=== PATIENT | female | born 1970 | race African-American/Black ===

== ENCOUNTER 2016-05-27 11:14 | Emergency (ER) | payer MEDICARE, MEDICAID ==
[~2016-05-27] VITALS: Ht 144.8 cm; Wt 60.0 kg
[~2016-05-27 11:14] MED LIST: ASPI81TA2 PO; BUSP5TAB PO; DENO60P SQ; EMTR1TAB2 PO; ERGO1CAP10 PO; HUMALOG SQ; HYDR-3133 PO; LEVEMIR SQ; METR-1 PO; NEPHTAB3 PO; OLAN5TAB PO; PHOS667C5 PO; PLAV75TA29 PO; ROSU1TAB4 PO; THERTAB53 PO; TIOT1AER INH
[2016-05-27 11:16] VITALS: BP 149/68; PULSE 117; RESP 18; TEMP 98.2; O2SAT 95
[2016-05-27 12:33] VITALS: BP 143/71; PULSE 111; RESP 18; O2SAT 100
[2016-05-27] MEDS ORDERED: VANC250C2 PO (12:33)
[2016-05-27] MEDS ORDERED: ULTR50TA5 PO (13:39)
[2016-05-27] MEDS ORDERED: AMOX500T PO (13:39)
--- NOTE | 2016-05-27 13:39 | PD ---
HPI Chief Complaint: Nosebleed Time Seen by Provider: 12:11 Travel History International Travel<30 days: No Contact w/Intl Traveler<30days: No Traveled to known affect area: No History of Present Illness HPI 46 years old female complains of nosebleed. Patient states that the nosebleed started last night. Patient has history of CAD status post stents placement on May 16, 2015. Patient is on Plavix since then. Patient denies any recent injury. Patient states that she slow bleeding from the left-sided nose since last night. Patient denies any headache. Patient denies any facial pain. Patient denies any chest pain or shortness of breath. Patient denies any dizziness. PFSH Past Medical History Hx Anticoagulant Therapy: Yes Arthritis: No Asthma: No Autoimmune Disease: Yes Blood Disorders: Yes (HIV) Anxiety: No Depression: No Heart Rhythm Problems: No Cancer: No Cardiac Catheterization: Yes Cardiovascular Problems: Yes High Cholesterol: Yes Chemotherapy: No Chest Pain: No Congestive Heart Failure: Yes COPD: Yes Cerebrovascular Accident: Yes Coronary Artery Disease: Yes Diabetes: Yes Patient Takes Glucophage: No Dialysis: Yes (M W F) Diminished Hearing: No Endocrine: Yes GERD: No Genitourinary: Yes (ESRD) Headaches: Yes Hiatal Hernia: No Hypertension: Yes Immune Disorder: Yes (HIV ) Implanted Vascular Access Dvce: Yes Kidney Stones: No Medical other: Yes Musculoskeletal: Yes (OSTEOPOROSIS) Neurologic: Yes Psychiatric: No Reproductive: No Respiratory: Yes (copd) Immunizations Current: Yes Radiation Therapy: No Renal Failure: Yes Seizures: No Sickle Cell Disease: No Sleep Apnea: No Thyroid Disease: No Ulcer: No Influenza Vaccination: Yes ?: Not Menopausal: Yes : 0 Para: 0 Miscarriage: 0 : 0 Tubal Ligation: Yes Past Surgical History Abdominal Surgery: No AICD: No Arteriovenous Shunt: Yes Body Medical Devices: L AV FISTULA Cardiac Surgery: Yes Coronary Stent: Yes (5 stents) Ear Surgery: No Endocrine Surgery: No Eye Surgery: No Genitourinary Surgery: No Gynecologic Surgery: No Insulin Pump: No Joint Replacement: No Oral Surgery: No Pacemaker: No Thoracic Surgery: No Other Surgery: Yes (AV FISTULA L ARM) Social History Alcohol Use: No Tobacco Use: No Substance Use: No Allergies-Medications (Allergen,Severity, Reaction): Coded Allergies: Codeine (Verified Allergy, Severe, Rash, 05/27/16) *MDRO Multi-Drug Resistant Organism (Verified Adverse Reaction, Unknown, ) 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 - 11/27/15 Reported Meds & Prescriptions Reported Meds & Active Scripts Active Ultram (Tramadol HCl) 50 Mg Tab 50 Mg PO Q6H PRN Amoxicillin 500 Mg Tab 500 Mg PO TID Reported Vancomycin (Vancomycin HCl) 250 Mg Cap 250 Mg PO QID Vitamin D (Ergocalciferol) 50,000 Unit Cap 50,000 Units PO MONTHLY Thera-Tabs (Multiple Vitamin) 1 Tab Tab 1 Tab PO DAILY Stiolto Respimat Inh (Tiotropium-Olodaterol Inh) 2.5-2.5 Mcg/Act Aero 2 Puff INH DAILY Rosuvastatin (Rosuvastatin Calcium) 5 Mg Tab 5 Mg PO MOWEFR Take 1 tablet (5mg) at bedtime on Thursday, Thursday and Thursday Prolia Inj (Denosumab) 60 Mg/Ml Inj 60 Mg SQ Q180D Olanzapine 5 Mg Tab 5 Mg PO HS Odefsey (Gihjavuelozci-Gkaxltwnkjv-Djqbnhmfe Alafenam) 200-200-25 Mg Tab 1 Tab PO DAILY Nephro-Juan Antonio (B-Complex W/ C & Folic Acid) 1 Tab 1 Tab PO DAILY Levemir Inj (Insulin Detemir) 1,000 unit/ 10 ML Vial 18 Units SQ HS Do not mix with any other Insulin. Hydroxyzine HCl 25 Mg Tab 25 Mg PO HS Humalog Inj (Insulin Human Lispro) 1,000 Unit/10 Ml Vial SQ ACHS PER SLIDING SCALE Plavix (Clopidogrel Bisulfate) 75 Mg Tab 75 Mg PO DAILY Phoslo (Calcium Acetate (Phosphate Binder)) 667 Mg Cap 1,334 Mg PO TID Take with meals Buspirone (Buspirone HCl) 5 Mg Tab 5 Mg PO BID Aspirin EC Low Dose (Aspirin) 81 Mg Tabec 81 Mg PO MOWEFR Take 1 tablet(81mg) at bedtime on Thursday,Thursday and Thursday Review of Systems General / Constitutional: No: Fever Eyes: No: Visual changes HENT: Positive: Nosebleed, No: Headaches Cardiovascular: No: Chest Pain or Discomfort Respiratory: No: Shortness of Breath Gastrointestinal: No: Abdominal Pain Genitourinary: No: Dysuria Musculoskeletal: No: Pain Skin: No Rash Neurologic: No: Weakness Psychiatric: No: Depression Endocrine: No: Polydipsia Hematologic/Lymphatic: No: Easy Bruising Physical Exam Narrative GENERAL: Well-nourished, well-developed patient. SKIN: Warm and dry. HEAD: Normocephalic. EYES: No scleral icterus. No injection or drainage. Patient has mild bleeding from the left-sided nose. NECK: Supple, trachea midline. No JVD or lymphadenopathy. CARDIOVASCULAR: Regular rate and rhythm without murmurs, gallops, or rubs. RESPIRATORY: Breath sounds equal bilaterally. No accessory muscle use. GASTROINTESTINAL: Abdomen soft, non-tender, nondistended. MUSCULOSKELETAL: No cyanosis, or edema. BACK: Nontender without obvious deformity. No CVA tenderness. Neurologic exam normal. Data Data Last Documented VS Vital Signs Date Time Temp Pulse Resp B/P Pulse Ox O2 Delivery O2 Flow Rate FiO2 05/27/16 13:42 112 16 134/74 96 Room Air 05/27/16 11:16 98.2 Orders MDM Medical Decision Making Medical Screen Exam Complete: Yes Emergency Medical Condition: Yes Differential Diagnosis Epistaxis Narrative Course 46 years old female with epistaxis. Patient is on Plavix. I spoke with Dr. Stahl, who is covering for Dr. Sow. Advised to hold off Plavix for next 4 days. Procedures Procedure Narrative Rhino Rocket inserted left side of the nose. Bleeding stopped completely. Diagnosis Primary Impression: Epistaxis Patient Instructions: General Instructions Additional Instructions: Follow-up with personal physician or ENT for packing removal in 3 days. Take medications as directed. Return if persistent bleeding. No Plavix for 4 days. Med/Other Pt SpecificInfo: Prescription(s) given Scripts Tramadol (Ultram)50 Mg Tab50 Mg PO Q6H PRN (PAIN) #20 TAB Prov:Satish Garcia MD 05/27/16 Amoxicillin 500 Mg [id number] Mg PO TID #15 TAB Prov:Satish Garcia MD 05/27/16 Disposition: 01 DISCHARGE HOME Condition: Stable Satish Garcia MD May 27, 2016 13:39
[2016-05-27 13:42] VITALS: BP 134/74; PULSE 112; RESP 16; O2SAT 96
== END 2016-05-27 14:01 | disposition home or self-care (01) ==
LOC: NEPA 11:14
DX: R04.0 Epistaxis (principal); B20 Human immunodeficiency virus [HIV] disease; E78.00 Pure hypercholesterolemia, unspecified; I50.9 Heart failure, unspecified; Z86.73 Personal history of transient ischemic attack (TIA), and cerebral infarction without residual deficits; N18.6 End stage renal disease; I12.0 Hypertensive chronic kidney disease with stage 5 chronic kidney disease or end stage renal disease; M81.0 Age-related osteoporosis without current pathological fracture; I25.10 Atherosclerotic heart disease of native coronary artery without angina pectoris
CPT/HCPCS: 30901

== ENCOUNTER 2016-05-30 14:40 | Emergency (ER) | payer MEDICARE, MEDICAID ==
[~2016-05-30] VITALS: Ht 175.3 cm; Wt 56.0 kg
[~2016-05-30 14:40] MED LIST changes: +AMOX500T PO; -METR-1 PO; +ULTR50TA5 PO; +VANC250C2 PO
[2016-05-30 14:41] VITALS: BP 140/80; PULSE 98; RESP 14; TEMP 98; O2SAT 98
--- NOTE | 2016-05-30 15:47 | PD ---
HPI Chief Complaint: Bacteriologist Industrial Problem Time Seen by Provider: 15:46 Travel History International Travel<30 days: No Contact w/Intl Traveler<30days: No Traveled to known affect area: No History of Present Illness HPI 46-year-old Afro-[place]ian female with history of CAD and use of Plavix presents to emergency department for follow-up recent epistaxis with Rhino Rocket placement by Dr. Paige 3 days prior to this visit. Patient was placed on an antibiotic and Plavix has been held for 4 days per cardiology consult at that time. Patient has no complaints at this time. No history of recurrence of epistaxis in the left nostril. Patient has a history of MRSA and allergy to codeine. PFSH Past Medical History Hx Anticoagulant Therapy: Yes Arthritis: No Asthma: No Autoimmune Disease: Yes Blood Disorders: Yes (HIV) Anxiety: No Depression: No Heart Rhythm Problems: No Cancer: No Cardiac Catheterization: Yes Cardiovascular Problems: Yes High Cholesterol: Yes Chemotherapy: No Chest Pain: No Congestive Heart Failure: Yes COPD: Yes Cerebrovascular Accident: Yes Coronary Artery Disease: Yes Diabetes: Yes Dialysis: Yes (M W F) Diminished Hearing: No Endocrine: Yes GERD: No Genitourinary: Yes (ESRD) Headaches: Yes Hiatal Hernia: No Hypertension: Yes Immune Disorder: Yes (HIV ) Implanted Vascular Access Dvce: Yes Kidney Stones: No Musculoskeletal: Yes (OSTEOPOROSIS) Neurologic: Yes Psychiatric: No Reproductive: No Respiratory: Yes (copd) Immunizations Current: Yes Radiation Therapy: No Renal Failure: Yes Seizures: No Sickle Cell Disease: No Sleep Apnea: No Thyroid Disease: No Ulcer: No Menopausal: Yes : 0 Para: 0 Miscarriage: 0 : 0 Tubal Ligation: Yes Past Surgical History Abdominal Surgery: No AICD: No Arteriovenous Shunt: Yes Body Medical Devices: L AV FISTULA Cardiac Surgery: Yes Coronary Stent: Yes (5 stents) Ear Surgery: No Endocrine Surgery: No Eye Surgery: No Genitourinary Surgery: No Gynecologic Surgery: No Insulin Pump: No Joint Replacement: No Oral Surgery: No Pacemaker: No Thoracic Surgery: No Other Surgery: Yes (AV FISTULA L ARM) Social History Alcohol Use: No Tobacco Use: No Substance Use: No Allergies-Medications (Allergen,Severity, Reaction): Coded Allergies: Codeine (Verified Allergy, Severe, Rash, 05/27/16) *MDRO Multi-Drug Resistant Organism (Verified Adverse Reaction, Unknown, ) 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 - 11/27/15 Reported Meds & Prescriptions Reported Meds & Active Scripts Active Ultram (Tramadol HCl) 50 Mg Tab 50 Mg PO Q6H PRN Amoxicillin 500 Mg Tab 500 Mg PO TID Reported Vancomycin (Vancomycin HCl) 250 Mg Cap 250 Mg PO QID Vitamin D (Ergocalciferol) 50,000 Unit Cap 50,000 Units PO MONTHLY Thera-Tabs (Multiple Vitamin) 1 Tab Tab 1 Tab PO DAILY Stiolto Respimat Inh (Tiotropium-Olodaterol Inh) 2.5-2.5 Mcg/Act Aero 2 Puff INH DAILY Rosuvastatin (Rosuvastatin Calcium) 5 Mg Tab 5 Mg PO MOWEFR Take 1 tablet (5mg) at bedtime on Thursday, Thursday and Thursday Prolia Inj (Denosumab) 60 Mg/Ml Inj 60 Mg SQ Q180D Olanzapine 5 Mg Tab 5 Mg PO HS Odefsey (Kyekuksqxjrwz-Nqlcmzkiome-Rybqzreie Alafenam) 200-200-25 Mg Tab 1 Tab PO DAILY Nephro-Juan Antonio (B-Complex W/ C & Folic Acid) 1 Tab 1 Tab PO DAILY Levemir Inj (Insulin Detemir) 1,000 unit/ 10 ML Vial 18 Units SQ HS Do not mix with any other Insulin. Hydroxyzine HCl 25 Mg Tab 25 Mg PO HS Humalog Inj (Insulin Human Lispro) 1,000 Unit/10 Ml Vial SQ ACHS PER SLIDING SCALE Plavix (Clopidogrel Bisulfate) 75 Mg Tab 75 Mg PO DAILY Phoslo (Calcium Acetate (Phosphate Binder)) 667 Mg Cap 1,334 Mg PO TID Take with meals Buspirone (Buspirone HCl) 5 Mg Tab 5 Mg PO BID Aspirin EC Low Dose (Aspirin) 81 Mg Tabec 81 Mg PO MOWEFR Take 1 tablet(81mg) at bedtime on Thursday,Thursday and Thursday Review of Systems Except as stated in HPI: all other systems reviewed are Neg General / Constitutional: No: Fever Eyes: No: Visual changes HENT: Positive: Nosebleed (3 days prior.), No: Headaches Cardiovascular: No: Chest Pain or Discomfort Respiratory: No: Shortness of Breath Gastrointestinal: No: Abdominal Pain Genitourinary: No: Dysuria Musculoskeletal: No: Pain Skin: No Rash Neurologic: No: Weakness Psychiatric: No: Depression Endocrine: No: Polydipsia Hematologic/Lymphatic: No: Easy Bruising Physical Exam Narrative GENERAL: Patient appears no acute distress. SKIN: Warm and dry. Normal color. Normal turgor. HEAD: Atraumatic. Normocephalic. EYES: Pupils equal and round. No scleral icterus. No injection or drainage. ENT: No nasal bleeding or discharge. Mucous membranes pink and moist. After removal of Rhino Rocket nasal mucosa is inspected and found to have no acute bleeding or blood clots noted in the left naris. Pharynx is clear without signs of recurrent bleeding. NECK: Trachea midline. No JVD. Supple. CARDIOVASCULAR: Regular rate and rhythm. RESPIRATORY: No accessory muscle use. Clear to auscultation. Breath sounds equal bilaterally. MUSCULOSKELETAL: Extremities without clubbing, cyanosis, or edema. No obvious deformities. NEUROLOGICAL: Awake and alert. No obvious cranial nerve deficits. Normal speech. PSYCHIATRIC: Appropriate mood and affect; insight and judgment normal. Data Data Last Documented VS Vital Signs Date Time Temp Pulse Resp B/P Pulse Ox O2 Delivery O2 Flow Rate FiO2 05/30/16 14:41 98.0 98 14 140/80 98 MDM Medical Decision Making Medical Screen Exam Complete: Yes Emergency Medical Condition: Yes Differential Diagnosis History of CAD on Plavix. History of epistaxis. Here for Rhino Rocket removal. Narrative Course Patient is medically stable at time of exam. Rhino Rocket is removed by myself without difficulty. Small amount of is placed in the naris and patient is monitored for 30 minutes to ensure no recurrence. Patient is felt stable to be discharged home. Patient should continue holding Plavix through tomorrow as previously instructed , and then restarted over the weekend. Patient is to follow with her primary care physician and shoe caser next week. Patient should use a small amount K-Y jelly frequently to the naris to prevent drying of the nasal mucosa. Patient should avoid going her nose, picking her nose, or sneezing. Patient can return to emergency department with recurrent epistaxis if necessary. Referrals: Primary Care Physician Patient Instructions: Epistaxis (DC), General Instructions Additional Instructions: Patient is felt stable to be discharged home. Patient should continue holding Plavix through tomorrow as previously instructed , and then restarted over the weekend. Patient is to follow with her primary care physician and shoe caser next week. Patient should use a small amount K-Y jelly frequently to the naris to prevent drying of the nasal mucosa. Patient should avoid going her nose, picking her nose, or sneezing. Patient can return to emergency department with recurrent epistaxis if necessary. Med/Other Pt SpecificInfo: No Meds Exist/No RX given Disposition: 01 DISCHARGE HOME Condition: Stable Deejay Her May 30, 2016 15:47
== END 2016-05-30 16:38 | disposition home or self-care (01) ==
LOC: NEPE 14:40
DX: R04.0 Epistaxis (principal); E78.00 Pure hypercholesterolemia, unspecified; E11.9 Type 2 diabetes mellitus without complications; I12.0 Hypertensive chronic kidney disease with stage 5 chronic kidney disease or end stage renal disease; I25.10 Atherosclerotic heart disease of native coronary artery without angina pectoris
CPT/HCPCS: 99281

== ENCOUNTER 2017-04-05 22:39 | Emergency (ER) | payer MEDICARE, MEDICAID ==
[~2017-04-05] VITALS: Ht 144.8 cm; Wt 59.1 kg
[~2017-04-05 22:39] MED LIST changes: +ACIDCAP9 PO; +AMIT24CA9 PO; -AMOX500T PO; -ASPI81TA2 PO; +ASPI81TA22 PO; +CINA30 PO; +DOCU100C15 PO; +LACT10SO PO; +MIDO2.5T PO; +OLAN2.5T7 PO; -OLAN5TAB PO; -ROSU1TAB4 PO; +ROSU1TAB6 PO; -ULTR50TA5 PO; -VANC250C2 PO; +[UNRECOGNIZED DRUG - OTHER]
[2017-04-05 22:44] VITALS: BP 191/87; PULSE 84; TEMP 98.4; O2SAT 97
[2017-04-05 22:58] VITALS: O2SAT 100
[2017-04-05] MEDS ORDERED: SODIUM CHLORIDE 0.9% FLUSH 10 ML FLUSH IVF PRN (23:00)
[2017-04-05] MEDS: RESP: ALBUTEROL 2.5 MG/3 ML NEB (SCH) INH (23:05)
--- NOTE | 2017-04-05 23:14 | PD ---
HPI Chief Complaint: Respiratory Symptoms Time Seen by Provider: 22:51 Travel History International Travel<30 days: No Contact w/Intl Traveler<30days: No Traveled to known affect area: No History of Present Illness HPI PATIENT PRESENTS C/O COUGH, WHEEZY FOR PAST 4 DAYS, NOT IMPROVING EVEN DESPITE DIALYSIS (ON //)....PATIENT DENIES ASSOC FACTORS OF FEVER/RAMÍREZ/SEVERE SOB/RASH /RAMÍREZ/ PFSH Past Medical History Hx Anticoagulant Therapy: Yes Arthritis: No Asthma: No Autoimmune Disease: Yes Blood Disorders: Yes (HIV) Anxiety: No Depression: No Heart Rhythm Problems: No Cancer: No Cardiac Catheterization: Yes Cardiovascular Problems: Yes High Cholesterol: Yes Chemotherapy: No Chest Pain: No Congestive Heart Failure: Yes COPD: Yes Cerebrovascular Accident: Yes Coronary Artery Disease: Yes Diabetes: Yes Patient Takes Glucophage: No Dialysis: Yes () Diminished Hearing: No Endocrine: Yes Gastrointestinal Disorders: No GERD: No Genitourinary: Yes (ESRD) Headaches: Yes Hiatal Hernia: No Heparin Induced Thrombocytopen: No Hypertension: Yes Immune Disorder: Yes (HIV ) Implanted Vascular Access Dvce: Yes Kidney Stones: No Medical other: Yes Musculoskeletal: Yes (OSTEOPOROSIS) Neurologic: Yes Psychiatric: No Reproductive: No Respiratory: Yes (copd) Immunizations Current: Yes Radiation Therapy: No Renal Failure: Yes Seizures: No Sickle Cell Disease: No Sleep Apnea: No Thyroid Disease: No Ulcer: No Tetanus Vaccination: < 5 Years Influenza Vaccination: Yes ?: Not Menopausal: Yes : 0 Para: 0 Miscarriage: 0 : 0 Tubal Ligation: Yes Past Surgical History Abdominal Surgery: No AICD: No Arteriovenous Shunt: Yes (left upper arm) Body Medical Devices: L AV FISTULA Cardiac Surgery: Yes Coronary Stent: Yes (5 stents) Ear Surgery: No Endocrine Surgery: No Eye Surgery: No Genitourinary Surgery: No Gynecologic Surgery: No Insulin Pump: No Joint Replacement: No Neurologic Surgery: No Oral Surgery: No Pacemaker: No Thoracic Surgery: No Other Surgery: Yes (AV FISTULA L ARM) Social History Alcohol Use: No Tobacco Use: No Substance Use: No Allergies-Medications (Allergen,Severity, Reaction): Coded Allergies: codeine (Unverified Allergy, Severe, Rash, 01/08/17) *MDRO Multi-Drug Resistant Organism (Verified Adverse Reaction, Unknown, 01/08/17) MRSA PCR screen ([facility]) POSITIVE - 11/27/15 Reported Meds & Prescriptions Reported Meds & Active Scripts Active [POV / Scooter] Ea Reported Midodrine Unknown Strength Tab 10 Mg PO THUWERI Take one tab every MWF 1 hour prior to dialysis Sensipar (Cinacalcet) Unknown Strength Tab Unknown Dose PO DAILY Thera-Tabs (Multiple Vitamin) 1 Tab Tab 1 Tab PO DAILY Sensipar (Cinacalcet) 30 Mg Tab 30 Mg PO DAILY Prolia Inj (Denosumab) 60 Mg/Ml Inj 60 Mg SQ Q180D Nephro-Juan Antonio (B-Complex W/ C & Folic Acid) 1 Tab 1 Tab PO DAILY Lactulose Liq (Lactulose) 10 Gm/15 Ml Soln 30 Ml PO Q6H PRN Docusate Sodium 100 Mg Cap 100 Mg PO HS PRN Acidophilus Probiotic Ble (Probiotic Product) 175 Mg Cap 1 Cap PO DAILY Amitiza (Lubiprostone) 24 Mcg Cap 24 Mg PO DAILY Rosuvastatin (Rosuvastatin Calcium) 10 Mg Tab 10 Mg PO DIRECTED One tab at bedtime Thursday, Thursday, and Thursday Olanzapine 2.5 Mg Tab 2.5 Mg PO HS Stiolto Respimat Inh (Tiotropium-Olodaterol Inh) 2.5-2.5 Mcg/Act Aero 2 Puff INH DAILY Odefsey (Istqujxmqxjfq-Vvtcvxyyppg-Rghgaiebc Alafenam) 200-200-25 Mg Tab 1 Tab PO DAILY Nephro-Juan Antonio (B-Complex W/ C & Folic Acid) 1 Tab 1 Tab PO DAILY Levemir Inj (Insulin Detemir) 1,000 unit/ 10 ML Vial 14-20 Units SQ BID Take 20 units in the morning and 14 units in the evening. Do not mix with any other Insulin. sometimes takes only 10 at night Hydroxyzine HCl 25 Mg Tab 25 Mg PO HS Humalog Inj (Insulin Human Lispro) 1,000 Unit/10 Ml Vial SQ ACHS PER SLIDING SCALE Plavix (Clopidogrel Bisulfate) 75 Mg Tab 75 Mg PO DAILY Buspirone (Buspirone HCl) 5 Mg Tab 2.5 Mg PO HS Aspirin EC Low Dose (Aspirin) 81 Mg Tabec 81 Mg PO MOWEFR Take 1 tablet(81mg) at bedtime on Thursday,Thursday and Thursday Review of Systems Except as stated in HPI: all other systems reviewed are Neg General / Constitutional: No: Fever Eyes: No: Visual changes HENT: No: Headaches Cardiovascular: No: Chest Pain or Discomfort Respiratory: Positive: Cough, Wheezing Gastrointestinal: No: Abdominal Pain Genitourinary: No: Dysuria Musculoskeletal: No: Pain Skin: No Rash Neurologic: No: Weakness Psychiatric: No: Depression Endocrine: No: Polydipsia Hematologic/Lymphatic: No: Easy Bruising Physical Exam Narrative GENERAL: SKIN: Warm and dry. HEAD: Atraumatic. Normocephalic. EYES: Pupils equal and round. No scleral icterus. No injection or drainage. ENT: No nasal bleeding or discharge. Mucous membranes pink and moist. NECK: Trachea midline. No JVD. CARDIOVASCULAR: Regular rate and rhythm. RESPIRATORY: No accessory muscle use. Clear to auscultation. Breath sounds equal bilaterally. GASTROINTESTINAL: Abdomen soft, non-tender, nondistended. MUSCULOSKELETAL: Extremities without clubbing, cyanosis, or edema. No obvious deformities. NEUROLOGICAL: Awake and alert. No obvious cranial nerve deficits. Motor grossly within normal limits. Five out of 5 muscle strength in the arms and legs. Normal speech. PSYCHIATRIC: Appropriate mood and affect; insight and judgment normal. Data Data Last Documented VS Vital Signs Date Time Temp Pulse Resp B/P (MAP) Pulse Ox O2 Delivery O2 Flow Rate FiO2 04/05/17 22:58 100 Nasal Cannula 2.00 04/05/17 22:44 98.4 84 191/87 (121) Orders Orders Chest, Pa & Lat (04/05/17 22:52) Ecg Monitoring (04/05/17 22:52) Oximetry (04/05/17 22:52) Oxygen Administration (04/05/17 22:52) Albuterol Neb (Albuterol Neb) (04/05/17 23:00) Sodium Chloride 0.9% Flush (Ns Flush) (04/05/17 23:00) MDM Medical Decision Making Medical Screen Exam Complete: Yes Emergency Medical Condition: Yes Medical Record Reviewed: Yes Differential Diagnosis BRONCHITIS V PNA Diagnosis Primary Impression: RIGHT HILAR INFILTRATE Additional Impression: BRONCHOSPASM Patient Instructions: COPD (Chronic Obstructive Pulmonary Disease) (ED), General Instructions Scripts Albuterol 18 GM Inh (Ventolin Hfa 18 GM Inh) 90 Mcg/Act Aer 2 PUFF INH Q4-6H Y for SHORTNESS OF BREATH, #1 INHALER 0 Refills Prov: Jesse Cardoza MD 04/06/17 Azithromycin (Zithromax Z-Jamarcus) 250 Mg Dspk 250 MG PO DIRECTED for Infection, #1 DSPK 0 Refills 500 MG (2 tabs) day 1, then 1 tab days 2-5. Prov: Jesse Cardoza MD 04/06/17 Prednisone (Prednisone) 10 Mg Tab 10 MG PO DAILY, #6 TAB 0 Refills Prov: Jesse Cardoza MD 04/06/17 Disposition: 01 DISCHARGE HOME Condition: Stable Jesse Cardoza MD Apr 05, 2017 23:14
--- NOTE | 2017-04-06 00:09 | RADRPT ---
EXAM DATE/TIME: 04/05/2017 23:39 [facility] COMPARISON: SPINE LUMBAR LTD (AP & LAT), August 24, 2014, 3:33. CHEST SINGLE AP, November 26, 2015, 20:10. CHEST SINGLE AP, August 15, 2014, 9:36. CHEST PA & LAT, March 02, 2014, 7:56. INDICATIONS : Shortness of breath. MEDICAL HISTORY : Hypertension. Congestive heart failure. Hypercholesterolemia. HIV CVA Diabetes CAD Renal failure SURGICAL HISTORY : Coronary artery stent. A-V fistula ENCOUNTER: Initial ACUITY: 1 day PAIN SCORE: 0/10 LOCATION: Bilateral chest FINDINGS: Frontal and lateral view of the chest demonstrates patchy infiltrates in the right infrahilar region. The left lung is clear. Both hemidiaphragms well delineated. The heart is normal in size. Stents are seen in the left arm and left axillary region. In lateral projection, there is a 20% compressio n deformity of T12, unchanged from prior exam in August 2014. CONCLUSION: Non-consolidative right infrahilar infiltrate. No evidence of pleural effusion. Remington Amaro MD on April 06, 2017 at 0:03 Board Certified Radiologist. This report was verified electronically.
[2017-04-06] MEDS ORDERED: PRED10 PO (00:57)
[2017-04-06] MEDS ORDERED: VENTAER INH (00:57)
[2017-04-06] MEDS ORDERED: ZITHTAB PO (00:57)
[2017-04-06] MEDS ORDERED: AZITHROMYCIN 250 MG TAB PO ONE (01:15)
[2017-04-06] MEDS: RESP: ALBUTEROL 2.5 MG/3 ML NEB (SCH) INH (01:23)
== END 2017-04-06 01:49 | disposition home or self-care (01) ==
LOC: NEPE 22:39
DX: R91.8 Other nonspecific abnormal finding of lung field (principal); J98.01 Acute bronchospasm; E78.00 Pure hypercholesterolemia, unspecified; I13.2 Hypertensive heart and chronic kidney disease with heart failure and with stage 5 chronic kidney disease, or end stage renal disease; I50.9 Heart failure, unspecified; N18.6 End stage renal disease; E11.22 Type 2 diabetes mellitus with diabetic chronic kidney disease; I25.10 Atherosclerotic heart disease of native coronary artery without angina pectoris; Z21 Asymptomatic human immunodeficiency virus [HIV] infection status
CPT/HCPCS: 71046; 94640; 94664; 99284; J7613

== ENCOUNTER 2017-08-17 22:41 | Emergency (ER) | payer MEDICARE, MEDICAID ==
[~2017-08-17] VITALS: Ht 157.5 cm; Wt 60.0 kg
[~2017-08-17 22:41] MED LIST changes: -ERGO1CAP10 PO; -PHOS667C5 PO; +PRED10 PO; +VENTAER INH; +ZITHTAB PO
[2017-08-17 23:11] VITALS: BP 105/55; PULSE 114; RESP 18; TEMP 98.9; O2SAT 95
--- NOTE | 2017-08-18 01:36 | PD ---
HPI Chief Complaint: Cold / Flu Symptoms Time Seen by Provider: 01:34 Travel History International Travel<30 days: No Contact w/Intl Traveler<30days: No Traveled to known affect area: No History of Present Illness HPI The patient is a 47 year old female who presents to the [facility] emergency department with a history of nausea and vomiting that began 2 weeks ago. The patient reports that she did discuss this with her dialysis physician and the [facility] nephrology clinic, however they thought this was diet related. She reports that she vomits approximately 1 time per day. She last vomited earlier this morning. She reports having associated low back pain in the center of the low back. She denies having any diarrhea. She has been also expressing constipation. She last moved her bowels in small amount, small hard stools 3 days ago. She has been taking Colace without relief of the constipation. The patient is on hemodialysis and receives her dialysis on Thursday. Her last dialysis was on Thursday. Review of systems otherwise, she denies having cough or congestion, neck pain, chest pain, shortness of breath, urinary symptoms, or neurologic symptoms. The patient has a prior history of HIV. The patient is on retroviral medications for treatment. She has been taking these consistently. She last had laboratory studies done regarding this in May. She reports that her viral load was undetectable and her CD4 count was 600-700 at that time. [facility] Past Medical History Narrative Medical The patient's past medical history is significant for HIV, chronic renal failure on hemodialysis, hypertension, diabetes mellitus, schizoaffective disorder Hx Anticoagulant Therapy: Yes Arthritis: No Asthma: No Autoimmune Disease: Yes Blood Disorders: Yes (HIV) Anxiety: No Depression: No Heart Rhythm Problems: No Cancer: No Cardiac Catheterization: Yes Cardiovascular Problems: Yes High Cholesterol: Yes Chemotherapy: No Chest Pain: No Congestive Heart Failure: Yes COPD: Yes Cerebrovascular Accident: Yes Coronary Artery Disease: Yes Diabetes: Yes Patient Takes Glucophage: No Dialysis: Yes () Diminished Hearing: No Endocrine: Yes Gastrointestinal Disorders: No GERD: No Genitourinary: Yes (ESRD) Headaches: Yes Hiatal Hernia: No Heparin Induced Thrombocytopen: No Hypertension: Yes Immune Disorder: Yes (HIV ) Implanted Vascular Access Dvce: Yes Kidney Stones: No Musculoskeletal: Yes (OSTEOPOROSIS) Neurologic: Yes Psychiatric: No Reproductive: No Respiratory: Yes (copd) Immunizations Current: Yes Radiation Therapy: No Renal Failure: Yes Seizures: No Sickle Cell Disease: No Sleep Apnea: No Thyroid Disease: No Ulcer: No ?: Not Menopausal: Yes : 0 Para: 0 Miscarriage: 0 : 0 Tubal Ligation: Yes Past Surgical History Narrative Surgical The patient's past surgical history to begin for left upper extremity AV fistula. Abdominal Surgery: No AICD: No Arteriovenous Shunt: Yes (left upper arm) Body Medical Devices: L AV FISTULA Cardiac Surgery: Yes Coronary Stent: Yes (5 stents) Ear Surgery: No Endocrine Surgery: No Eye Surgery: No Genitourinary Surgery: No Gynecologic Surgery: No Insulin Pump: No Joint Replacement: No Neurologic Surgery: No Oral Surgery: No Pacemaker: No Thoracic Surgery: No Other Surgery: Yes (AV FISTULA L ARM) Social History Alcohol Use: No Tobacco Use: No Substance Use: No Allergies-Medications (Allergen,Severity, Reaction): Coded Allergies: codeine (Unverified Allergy, Severe, Rash, 01/08/17) *MDRO Multi-Drug Resistant Organism (Verified Adverse Reaction, Unknown, 01/08/17) 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 - 11/27/15 Reported Meds & Prescriptions Reported Meds & Active Scripts Active Cefuroxime (Cefuroxime Axetil) 500 Mg Tab 500 Mg PO BID Zithromax (Azithromycin) 250 Mg Tab 250 Mg PO DAILY 4 Days Ventolin Hfa 18 GM Inh (Albuterol Sulfate) 90 Mcg/Act Aer 2 Puff INH Q4-6H PRN [POV / Scooter] Ea Reported Thera-Tabs (Multiple Vitamin) 1 Tab Tab 1 Tab PO DAILY Sensipar (Cinacalcet) 30 Mg Tab 30 Mg PO DAILY Prolia Inj (Denosumab) 60 Mg/Ml Inj 60 Mg SQ Q180D Lactulose Liq (Lactulose) 10 Gm/15 Ml Soln 30 Ml PO Q6H PRN Docusate Sodium 100 Mg Cap 100 Mg PO HS PRN Acidophilus Probiotic Ble (Probiotic Product) 175 Mg Cap 1 Cap PO DAILY Amitiza (Lubiprostone) 24 Mcg Cap 24 Mg PO DAILY Rosuvastatin (Rosuvastatin Calcium) 10 Mg Tab 10 Mg PO DIRECTED One tab at bedtime Thursday, Thursday, and Thursday Olanzapine 2.5 Mg Tab 2.5 Mg PO HS Stiolto Respimat Inh (Tiotropium-Olodaterol Inh) 2.5-2.5 Mcg/Act Aero 2 Puff INH DAILY Odefsey (Fynhwjhombjlu-Jxtovomfusy-Gbzysdkze Alafenam) 200-200-25 Mg Tab 1 Tab PO DAILY Nephro-Juan Antonio (B-Complex W/ C & Folic Acid) 1 Tab 1 Tab PO DAILY Hydroxyzine HCl 25 Mg Tab 25 Mg PO HS Humalog Inj (Insulin Human Lispro) 1,000 Unit/10 Ml Vial SQ ACHS PER SLIDING SCALE Plavix (Clopidogrel Bisulfate) 75 Mg Tab 75 Mg PO DAILY Buspirone (Buspirone HCl) 5 Mg Tab 2.5 Mg PO HS Aspirin EC Low Dose (Aspirin) 81 Mg Tabec 81 Mg PO MOWEFR Take 1 tablet(81mg) at bedtime on Thursday,Thursday and Thursday Review of Systems Except as stated in HPI: all other systems reviewed are Neg General / Constitutional: No: Fever Eyes: No: Visual changes HENT: No: Headaches Cardiovascular: No: Chest Pain or Discomfort Respiratory: No: Shortness of Breath Gastrointestinal: Positive: Nausea, Vomiting, Constipation, Changes in Bowel Habits, No: Diarrhea, Abdominal Pain, Hematemesis, Hematochezia, Indigestion, Loss of Appetite Genitourinary: No: Dysuria Musculoskeletal: No: Pain Skin: No Rash Neurologic: No: Weakness, Focal Abnormalities, Change in Mentation, Slurred Speech, Sensory Disturbance Psychiatric: No: Depression Endocrine: No: Polydipsia Hematologic/Lymphatic: No: Easy Bruising Physical Exam Narrative General: The patient is a well-developed well-nourished female in no acute distress. Head and Neck exam: Head is normocephalic atraumatic. Eyes: The patient has a disconjugate gaze with a history of strabismus. Pupils are equal round and reactive to light. Nose: Midline septum with pink mucous membranes Mouth: Dentition unremarkable. Moist mucus membranes. Posterior oropharynx is not erythematous. No tonsillar hypertrophy. Uvula midline. Airway patent. Neck: No palpable lymphadenopathy. No nuchal rigidity. No thyromegaly. Cardiovascular: Sinus tachycardia in the low 100s without murmurs, gallops, or rubs. No pulse deficit to the extremities on simultaneous auscultation and palpation of her radial artery. Lungs: Clear to auscultation bilaterally. No wheezes, rhonchi, or rales. Abdomen: Soft, without tenderness to palpation in all 4 quadrants of the abdomen. No guarding, rebound, or rigidity. Normal bowel sounds are audible. No tenderness on palpation of McBurney's point. Negative Gonzalez sign. Extremities: No clubbing or cyanosis. The patient has trace pedal edema bilateral lower extremities. 2+ pulses in all 4 extremities. No calf tenderness on palpation. Back: No spinous process tenderness to palpation. No costovertebral angle tenderness to palpation. The patient reports paraspinal muscle tenderness on palpation along the sacrum and lower lumbar spine. Neurologic Exam: Grossly nonfocal. Skin Exam: No rash noted. Intact skin that is warm and dry. Data Data Last Documented VS Vital Signs Date Time Temp Pulse Resp B/P (MAP) Pulse Ox O2 Delivery O2 Flow Rate FiO2 08/18/17 03:41 100 20 118/69 (85) 97 Nasal Cannula 2.00 08/17/17 23:11 98.9 Orders Orders Electrocardiogram (08/18/17 01:46) Complete Blood Count With Diff (08/18/17 01:46) Comprehensive Metabolic Panel (08/18/17 01:46) Prothrombin Time / Inr (Pt) (08/18/17 01:46) Act Partial Throm Time (Ptt) (08/18/17 01:46) Lipase (08/18/17 01:46) Chest, Single Ap (08/18/17 01:46) Iv Access Insert/Monitor (08/18/17 01:46) Ecg Monitoring (08/18/17 01:46) Oximetry (08/18/17 01:46) Lactic Acid Sepsis Protocol (08/18/17 02:42) Blood Culture (08/18/17 02:42) Ondansetron Odt (Zofran Odt) (08/18/17 02:45) Ct Abd/Pel W/O Iv Contrast (08/18/17 02:43) Piperacil-Tazo 3.375 Gm Premix (Zosyn 3. (08/18/17 02:45) Azithromycin Inj (Zithromax Inj) (08/18/17 05:15) Ed Discharge Order (08/18/17 05:50) Labs Laboratory Tests Test 08/18/17 03:00 White Blood Count 14.0 TH/MM3 Red Blood Count 3.09 MIL/MM3 Hemoglobin 10.7 GM/DL Hematocrit 33.4 % Mean Corpuscular Volume 108.0 FL Mean Corpuscular Hemoglobin 34.6 PG Mean Corpuscular Hemoglobin Concent 32.0 % Red Cell Distribution Width 15.4 % Platelet Count 248 TH/MM3 Mean Platelet Volume 9.3 FL Neutrophils (%) (Auto) 80.4 % Lymphocytes (%) (Auto) 7.4 % Monocytes (%) (Auto) 11.6 % Eosinophils (%) (Auto) 0.1 % Basophils (%) (Auto) 0.5 % Neutrophils # (Auto) 11.2 TH/MM3 Lymphocytes # (Auto) 1.0 TH/MM3 Monocytes # (Auto) 1.6 TH/MM3 Eosinophils # (Auto) 0.0 TH/MM3 Basophils # (Auto) 0.1 TH/MM3 CBC Comment DIFF FINAL Differential Comment Prothrombin Time 10.5 SEC Prothromb Time International Ratio 1.0 RATIO Activated Partial Thromboplast Time 30.5 SEC Blood Urea Nitrogen 48 MG/DL Creatinine 8.10 MG/DL Random Glucose 134 MG/DL Total Protein 7.7 GM/DL Albumin 3.1 GM/DL Calcium Level 10.6 MG/DL Alkaline Phosphatase 154 U/L Aspartate Amino Transf (AST/SGOT) 34 U/L Alanine Aminotransferase (ALT/SGPT) 19 U/L Total Bilirubin 0.7 MG/DL Sodium Level 136 MEQ/L Potassium Level 5.0 MEQ/L Chloride Level 96 MEQ/L Carbon Dioxide Level 25.8 MEQ/L Anion Gap 14 MEQ/L Estimat Glomerular Filtration Rate 6 ML/MIN Lactic Acid Level 1.0 mmol/L Lipase 41 U/L [facility] Medical Decision Making Medical Screen Exam Complete: Yes Emergency Medical Condition: Yes Medical Record Reviewed: Yes Differential Diagnosis Diverticulitis, versus constipation, versus bowel obstruction, versus perforated bowel Narrative Course During the course of the patient's emergency department visit, the patient's history, examination, and differential diagnosis were reviewed with the patient. The patient was placed on a engine monitor with oximetry and frequent blood pressure monitoring. The patient had IV access obtained and blood work sent for analysis. The patient was initially provided Zofran 4 mg IV, Zosyn 3.375 g IV, azithromycin 500 mg IV. The patient's laboratory studies were reviewed and remarkable for a white count of 14, hemoglobin 10.7, platelets 248 with 80.4 neutrophils, lymphocytes 7.4, monocytes 11.6., CMP is remarkable for chloride of 96, BUN 48, creatinine 8.10 , glucose 134, calcium 10.6, alk phos 154, lipase 41, lactic acid is 1, PT 10.5 , PTT 30.5. Radiology studies were reviewed and remarkable for Last Impressions Abdomen/Pelvis CT 08/18/17 0243 Signed Impressions: CONCLUSION: 1. Atrophic horseshoe kidney. No hydronephrosis. Possible tiny 2 mm nonobstruc ting stone upper pole on the left side. 2. Nonspecific interstitial infiltrates in both lung bases. Cardiomegaly. 3. Otherwise, unremarkable and stable examination. Chest X-Ray 08/18/17 0146 Signed Impressions: CONCLUSION: There is a linear infiltrate left midlung suggestive of atelectasis versus scar ring. Mild parenchymal changes in the right lung base. Given the patient's elevated white blood cell count and reported history of recent cough, the patient will be treated for pneumonia, however CT scan of the abdomen and pelvis shows bilateral interstitial infiltrates, which could be related to the patient's renal failure and mild pulmonary edema. The patient is due for her dialysis this morning. The patient's results were discussed with her. The patient was offered admission for continued IV antibiotic for treatment of her lung infiltrate, however the patient reports feeling improved. The patient is agreeable with the plan to start on p.o. antibiotic. The patient will follow-up for her usual dialysis later today. The patient is instructed regarding the importance of close follow-up with her primary care physician in the next 2 days for reexamination. The patient is resting comfortably and feels better, is alert and in no distress. The patient's results and examination findings were discussed with the patient. The repeat examination is unremarkable and benign. The history, exam, diagnostic testing, and current condition do not suggest any significant pathology to warrant further testing, continued ED treatment, admission, or surgical evaluation at this point. The vital signs have been stable. The patient does not have uncontrollable pain, intractable vomiting, or other significant symptoms. The patient's condition is stable and appropriate for discharge. The patient will pursue further outpatient evaluation with a primary care physician or other designated or consulting physician as indicated in the discharge instructions. The patient is instructed to report back to the emergency department immediately for reexamination in the mean time if she develops any new or worsening signs or symptoms. The patient expressed understanding and was agreeable with this plan. Diagnosis Primary Impression: Pneumonia Qualified Codes: J18.9 - Pneumonia, unspecified organism Referrals: Dialysis Primary Care Physician 2 days Patient Instructions: Bacterial Pneumonia (ED), General Instructions Med/Other Pt SpecificInfo: Prescription(s) given Scripts Cefuroxime (Cefuroxime) 500 Mg Tab 500 MG PO BID for Infection, #19 TAB 0 Refills Prov: Lena Pizarro MD 08/18/17 Azithromycin (Zithromax) 250 Mg Tab 250 MG PO DAILY for Infection for 4 Days, #4 TAB 0 Refills Prov: Lena Pizarro MD 08/18/17 Disposition: 01 DISCHARGE HOME Condition: Stable Lena Pizarro MD Aug 18, 2017 01:36
--- NOTE | 2017-08-18 02:24 | RADRPT ---
EXAM DATE: 08/18/2017 2:16 AM EDT AGE/SEX: 47 years / Female INDICATIONS: Cough. CLINICAL DATA: This is the patient's initial encounter. Patient reports that signs and symptoms have been present for 1 day and indicates a pain score of 0/10. MEDICAL/SURGICAL HISTORY: Hypertension. Congestive heart failure. Hypercholesterolemia. HIV. CVA. Diabetes. CAD. . Coronary artery stent. A-V fistula. COMPARISON: [facility], XR CHEST PA AND LAT, 04/21/2017. . FINDINGS: There is a linear infiltrate in the left midlung suggestive of atelectasis versus scarring. There is some mild parenchymal changes in the right lung base. Otherwise, the rest the lungs are grossly clear . No pleural effusions or pulmonary edema. The heart size is within normal limits. The bony structure s are stable. No other significant changes are seen compared to the prior study. CONCLUSION: There is a linear infiltrate left midlung suggestive of atelectasis versus scarring. Mild parenchymal changes in the right lung base. Electronically signed by: Barrett Santillan MD 08/18/2017 2:23 AM EDT
[2017-08-18] MEDS ORDERED: ONDANSETRON ODT 4 MG TAB PO ONE (02:45)
[2017-08-18] MEDS ORDERED: PIPERACIL-TAZO 3.375 GM PREMIX 50 ML IV ONE (02:45)
[2017-08-18 03:12] LABS: AUTOMATED NEUTROPHIL # 11.2 TH/MM3 (1.8-7.7); BASOPHIL # 0.1 TH/MM3 (0-0.2); BASOPHIL % 0.5 % (0.0-2.0); EOSINOPHIL % 0.1 % (0.0-4.0); HEMATOCRIT 33.4 % (35.0-46.0); HEMOGLOBIN 10.7 GM/DL (11.6-15.3); LYMPH % 7.4 % (9.0-44.0); MEAN CORPUSCULAR HEMOGLOBIN 34.6 PG (27.0-34.0); MEAN PLATELET VOLUME 9.3 FL (7.0-11.0); MONO % 11.6 % (0.0-8.0); MONOCYTE # 1.6 TH/MM3 (0-0.9); NEUT % 80.4 % (16.0-70.0); PLATELET COUNT 248 TH/MM3 (150-450); RED BLOOD COUNT 3.09 MIL/MM3 (4.00-5.30); RED CELL DISTRIBUTION WIDTH 15.4 % (11.6-17.2)
[2017-08-18 03:19] LABS: PROTHROMBIN TIME - PATIENT 10.5 SEC (9.8-11.6)
[2017-08-18 03:24] LABS: ALBUMIN 3.1 GM/DL (3.4-5.0); AST (GOT) 34 U/L (15-37); BICARBONATE 25.8 MEQ/L (21.0-32.0); BLOOD UREA NITROGEN 48 MG/DL (7-18); CALCIUM 10.6 MG/DL (8.5-10.1); CHLORIDE 96 MEQ/L (98-107); GLOMERULAR FILTRATION RATE 6 ML/MIN (>89); GLUCOSE,RANDOM 134 MG/DL (74-106); SODIUM (NA) 136 MEQ/L (136-145)
[2017-08-18 03:29] LABS: ALKALINE PHOSPHATASE 154 U/L (45-117); ALT (GPT) 19 U/L (10-53); TOTAL BILIRUBIN ADULT 0.7 MG/DL (0.2-1.0); TOTAL PROTEIN 7.7 GM/DL (6.4-8.2)
[2017-08-18 03:41] VITALS: BP 118/69; PULSE 100; RESP 20; O2SAT 97
--- NOTE | 2017-08-18 04:09 | RADRPT ---
EXAM DATE: 08/18/2017 3:50 AM EDT AGE/SEX: 47 years / Female INDICATIONS: Abdomen pain with nausea and vomiting past 5 days. CLINICAL DATA: This is the patient's initial encounter. Patient reports that signs and symptoms have been present for 4 - 6 days and indicates a pain score of 6/10. MEDICAL/SURGICAL HISTORY: Cardiovascular disease. Hypertension. Chronic obstructive pulmonary disease. Reanal failure Dialysis HIV Coronary artery stent. RADIATION DOSE: 7.82 CTDI (mGy) COMPARISON: [facility] [place] ABDOMEN & PELVIS W/O CONTRAST, 04/12/2010. . TECHNIQUE: Multiple contiguous axial images were obtained through the abdomen. Images were obtained using multiple row detector helical technique. Using dose reduction techniques, radiation dose was ke pt as low as reasonably achievable to obtain optimal diagnostic quality images. Lack of IV contrast l imits the diagnosis for certain organ pathology. FINDINGS: Lower Lungs: Nonspecific interstitial infiltrates in both lung bases. Heart size appears to be enlarg ed. Liver: The liver has a homogeneous density without space-occupying lesion. There is no dilation of th e biliary tree. Gallbladder is unremarkable. Spleen: Homogeneous density without enlargement. Pancreas: Unremarkable without mass or calcification. Kidneys: Atrophic horseshoe kidney. No hydronephrosis. Tiny 2 mm calcification upper pole left kidne y. The atrophy has developed since the prior study. Adrenal Glands: Unremarkable. Aorta: The aorta and proximal iliac vessels are grossly unremarkable without aneurysmal dilation. Bowel/Mesentery: The bowel loops are grossly unremarkable. The cecum and sigmoid colon have a normal configuration. The appendix is unremarkable. There is stool throughout the colon. No inflammatory ch anges. Abdominal Wall: Nonspecific soft tissue changes in the subcutaneous fat of the anterior abdominal wa ll. Retroperitoneum: No evidence of adenopathy in the retrocrural, para-aortic, or deep pelvic regions. Bladder: Decompressed. Reproductive Organs: No abnormal masses or calcifications seen. Inguinal: The inguinal region is unremarkable without evidence of adenopathy. Bony Structures: Mild degenerative changes. Except for the atrophy of the horseshoe kidney, no significant changes compared to the prior study. CONCLUSION: 1. Atrophic horseshoe kidney. No hydronephrosis. Possible tiny 2 mm nonobstructing stone upper pole on the left side. 2. Nonspecific interstitial infiltrates in both lung bases. Cardiomegaly. 3. Otherwise, unremarkable and stable examination. Electronically signed by: Barrett Santillan MD 08/18/2017 4:08 AM EDT
[2017-08-18] MEDS ORDERED: AZITHROMYCIN INJ 500 MG in SODIUM CHLOR 0.9% 250 ML INJ 250 ML IV ONE (05:15)
[2017-08-18] MEDS ORDERED: CEFU1TAB20 PO (05:52)
[2017-08-18] MEDS ORDERED: ZITH250T PO (05:52)
--- NOTE | 2017-08-18 16:13 | EKG ---
Date Performed: 08/18/2017 Time Performed: 04:16:19 PTAGE: 47 years EKG: Sinus rhythm WITH SINUS ARRHYTHMIA LEFT ATRIAL ENLARGEMENT BORDERLINE RIGHT AXIS DEVIATION ST DEVIATION AND MARKE D T-WAVE ABNORMALITY, CONSIDER ANTEROLATERAL ISCHEMIA ST DEVIATION AND MODERATE T-WAVE ABNORMALITY, C ONSIDER INFERIOR ISCHEMIA ABNORMAL ECG PREVIOUS TRACING : 11/26/2015 21.38 Since the prior tracing, there has been a significant incre ase in the diffuse T-wave changes. QT interval is now prolonged for the heart rate. Myocardial ischem ia and electrolyte imbalance should be excluded. DOCTOR: Tamanna Riggs Interpretating Date/Time 08/18/2017 16:12:02
== END 2017-08-18 07:15 | disposition home or self-care (01) ==
LOC: NEPC 22:41
DX: J18.9 Pneumonia, unspecified organism (principal); J44.0 Chronic obstructive pulmonary disease with (acute) lower respiratory infection; R94.31 Abnormal electrocardiogram [ECG] [EKG]; K59.00 Constipation, unspecified; I13.2 Hypertensive heart and chronic kidney disease with heart failure and with stage 5 chronic kidney disease, or end stage renal disease; I25.10 Atherosclerotic heart disease of native coronary artery without angina pectoris; I50.9 Heart failure, unspecified; E11.22 Type 2 diabetes mellitus with diabetic chronic kidney disease; N18.6 End stage renal disease; E78.00 Pure hypercholesterolemia, unspecified; Z99.2 Dependence on renal dialysis; Z21 Asymptomatic human immunodeficiency virus [HIV] infection status; Z86.73 Personal history of transient ischemic attack (TIA), and cerebral infarction without residual deficits; Z88.5 Allergy status to narcotic agent; Z79.4 Long term (current) use of insulin; Z79.899 Other long term (current) drug therapy
CPT/HCPCS: 71045; 74176; 80053; 83605; 83690; 85025; 85610; 85730; 87040; 93005; 96365; 96375; 99285; J0456; J2543; J7050

== ENCOUNTER 2017-08-20 07:17 | Inpatient (IN) | payer MEDICARE, MEDICAID ==
[~2017-08-20] VITALS: Ht 152.4 cm; Wt 65.0 kg
[2017-08-20] VITALS (12 sets, daily range): BP systolic 97–189; BP diastolic 53–84; PULSE 115–129; RESP 17–24; TEMP 97.4; O2SAT 95–100
[~2017-08-20 07:17] MED LIST changes: +CEFU1TAB20 PO; -LEVEMIR SQ; -MIDO2.5T PO; -PRED10 PO; +ZITH250T PO; -ZITHTAB PO
[2017-08-20] MEDS ORDERED: MIDAZOLAM 100 MG/100 ML INJ 100 ML IV PRN (07:45)
--- NOTE | 2017-08-20 07:48 | RADRPT ---
EXAM DATE: 08/20/2017 7:45 AM EDT AGE/SEX: 47 years / Female INDICATIONS: Post intubation. CLINICAL DATA: This is the patient's initial encounter. Patient reports that signs and symptoms have been present for 1 day and indicates a pain score of Nonresponsive. MEDICAL/SURGICAL HISTORY: Cerebrovascular disease. Hypertension. Renal disease. Myocardial i nfarct. CHF.COPD.CAD. Diabetes Tubal ligation. [place] [facility] [place]. . FINDINGS: Portable AP view of the chest demonstrates a normal size cardiac silhouette. Endotracheal tube is pre sent with tip measuring 1.7 cm from the glenis. There is mild atelectasis at the lung bases. No pleur al effusion or pneumothorax is identified. EKG lines overlie the patient in a nonspecific line projec ts over the right upper quadrant and right lower lung zone. There are vascular stents in the left axi lla and left arm. Bones demonstrate no acute finding. CONCLUSION: 1. Endotracheal tube distal tip measures 1.7 cm from the glenis. 2. Improved aeration at the lung bases with continued mild bibasilar opacity representing either ate lectasis or mild consolidation. Electronically signed by: Eddy Bill MD 08/20/2017 7:47 AM EDT
--- NOTE | 2017-08-20 07:51 | PD ---
HPI Chief Complaint: Code Blue Time Seen by Provider: 07:23 Travel History International Travel<30 days: No Contact w/Intl Traveler<30days: No Traveled to known affect area: No History of Present Illness HPI This is a 47-year-old female with a history of end-stage renal disease, dialysis dependent, HIV, who presents here via EMS after she had a witnessed cardiac arrest. According to the [facility] paramedics, there was a call for shortness of breath. When paramedics arrived, they found the patient to go into cardiac arrest. CPR was immediately initiated. Patient went into what was reported V. fib arrest which for shortly followed into asystole. Patient was given 3 rounds of epinephrine and 1 round of calcium chloride in the field. Return of spontaneous circulation was obtained. When patient arrived, she was intubated and had a pulse. PFSH Past Medical History Hx Anticoagulant Therapy: Yes Arthritis: No Asthma: No Autoimmune Disease: Yes Blood Disorders: Yes (HIV) Anxiety: No Depression: No Heart Rhythm Problems: No Cancer: No Cardiac Catheterization: Yes Cardiovascular Problems: Yes High Cholesterol: Yes Chemotherapy: No Chest Pain: No Congestive Heart Failure: Yes COPD: Yes Cerebrovascular Accident: Yes Coronary Artery Disease: Yes Diabetes: Yes Patient Takes Glucophage: No Dialysis: Yes () Diminished Hearing: No Endocrine: Yes Gastrointestinal Disorders: No GERD: No Genitourinary: Yes (ESRD) Headaches: Yes Hiatal Hernia: No Heparin Induced Thrombocytopen: No Hypertension: Yes Immune Disorder: Yes (HIV ) Implanted Vascular Access Dvce: Yes Kidney Stones: No Medical other: Yes Musculoskeletal: Yes (OSTEOPOROSIS) Neurologic: Yes Psychiatric: No Reproductive: No Respiratory: Yes (copd) Immunizations Current: Yes Radiation Therapy: No Renal Failure: Yes Seizures: No Sickle Cell Disease: No Sleep Apnea: No Thyroid Disease: No Ulcer: No ?: Not Menopausal: Yes : 0 Para: 0 Miscarriage: 0 : 0 Tubal Ligation: Yes Past Surgical History Abdominal Surgery: No AICD: No Arteriovenous Shunt: Yes (left upper arm) Body Medical Devices: L AV FISTULA Cardiac Surgery: Yes Coronary Stent: Yes (5 stents) Ear Surgery: No Endocrine Surgery: No Eye Surgery: No Genitourinary Surgery: No Gynecologic Surgery: No Insulin Pump: No Joint Replacement: No Neurologic Surgery: No Oral Surgery: No Pacemaker: No Thoracic Surgery: No Other Surgery: Yes (AV FISTULA L ARM) Social History Alcohol Use: No Tobacco Use: No Substance Use: No Allergies-Medications (Allergen,Severity, Reaction): Coded Allergies: codeine (Unverified Allergy, Severe, Rash, 01/08/17) *MDRO Multi-Drug Resistant Organism (Verified Adverse Reaction, Unknown, 01/08/17) 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 - 11/27/15 Reported Meds & Prescriptions Reported Meds & Active Scripts Active Cefuroxime (Cefuroxime Axetil) 500 Mg Tab 500 Mg PO BID Zithromax (Azithromycin) 250 Mg Tab 250 Mg PO DAILY 4 Days Ventolin Hfa 18 GM Inh (Albuterol Sulfate) 90 Mcg/Act Aer 2 Puff INH Q4-6H PRN [POV / Scooter] Ea Reported Thera-Tabs (Multiple Vitamin) 1 Tab Tab 1 Tab PO DAILY Sensipar (Cinacalcet) 30 Mg Tab 30 Mg PO DAILY Prolia Inj (Denosumab) 60 Mg/Ml Inj 60 Mg SQ Q180D Lactulose Liq (Lactulose) 10 Gm/15 Ml Soln 30 Ml PO Q6H PRN Docusate Sodium 100 Mg Cap 100 Mg PO HS PRN Acidophilus Probiotic Ble (Probiotic Product) 175 Mg Cap 1 Cap PO DAILY Amitiza (Lubiprostone) 24 Mcg Cap 24 Mg PO DAILY Rosuvastatin (Rosuvastatin Calcium) 10 Mg Tab 10 Mg PO DIRECTED One tab at bedtime Thursday, Thursday, and Thursday Olanzapine 2.5 Mg Tab 2.5 Mg PO HS Stiolto Respimat Inh (Tiotropium-Olodaterol Inh) 2.5-2.5 Mcg/Act Aero 2 Puff INH DAILY Odefsey (Nfcfvddhkhtee-Gsvkysgycpl-Hetiqnwda Alafenam) 200-200-25 Mg Tab 1 Tab PO DAILY Nephro-Juan Antonio (B-Complex W/ C & Folic Acid) 1 Tab 1 Tab PO DAILY Hydroxyzine HCl 25 Mg Tab 25 Mg PO HS Humalog Inj (Insulin Human Lispro) 1,000 Unit/10 Ml Vial SQ ACHS PER SLIDING SCALE Plavix (Clopidogrel Bisulfate) 75 Mg Tab 75 Mg PO DAILY Buspirone (Buspirone HCl) 5 Mg Tab 2.5 Mg PO HS Aspirin EC Low Dose (Aspirin) 81 Mg Tabec 81 Mg PO MOWEFR Take 1 tablet(81mg) at bedtime on Thursday,Thursday and Thursday Review of Systems ROS Limitations: Intubated Except as stated in HPI: all other systems reviewed are Neg Physical Exam Narrative GENERAL: Well-developed well-nourished female being bagged ventilated through her ET tube. SKIN: Focused skin assessment warm/dry. HEAD: Atraumatic. Normocephalic. EYES: Pupils equal and round at 3. No scleral icterus. No injection or drainage. ENT: Mucous membranes pink and moist. NECK: Trachea midline. No JVD. CARDIOVASCULAR: Sinus tach rate of 130s. No murmur appreciated. RESPIRATORY: Patient was not breathing on her own. On auscultation she had bilateral breath sounds with absence of epigastric sounds. GASTROINTESTINAL: Abdomen soft, non-tender, nondistended. MUSCULOSKELETAL: No obvious deformities. No clubbing. No cyanosis. No edema. NEUROLOGICAL: No spontaneous movements. Patient had GCS of 3. Data Data Last Documented VS Vital Signs Date Time Temp Pulse Resp B/P (MAP) Pulse Ox O2 Delivery O2 Flow Rate FiO2 08/20/17 08:25 129 24 164/80 (108) 95 Ventilator 50 08/20/17 07:46 97.4 Orders Orders Electrocardiogram (08/20/17 07:24) Complete Blood Count With Diff (08/20/17 07:24) Comprehensive Metabolic Panel (08/20/17 07:24) Ckmb (Isoenzyme) Profile (08/20/17 07:24) Troponin I (08/20/17 07:24) Prothrombin Time / Inr (Pt) (08/20/17 07:24) Act Partial Throm Time (Ptt) (08/20/17 07:24) Arterial Blood Gas (Abg) (08/20/17 07:24) Magnesium (Mg) (08/20/17 07:24) Phosphorus (Po4) (08/20/17 07:24) Chest, Single Ap (08/20/17 07:24) Iv Access Insert/Monitor (08/20/17 07:24) Ecg Monitoring (08/20/17 07:24) Oximetry (08/20/17 07:24) Urinary Catheter Insert/Apply (08/20/17 07:24) Ct Brain W/O Iv Contrast(Rout) (08/20/17 07:47) Midazolam 50 Mg/50 Ml Inj (Versed Inj) (08/20/17 08:00) Sodium Bicarbonate 8.4% Inj (Sodium Bica (08/20/17 08:15) Sodium Bicarbonate 8.4% Inj (Sodium Bica (08/20/17 08:15) Lactic Acid Sepsis Protocol (08/20/17 08:08) Admit To Inpatient (08/20/17 ) Code Status (08/20/17 08:46) Vital Signs (Adult) VASILE.Q1H (08/20/17 08:46) Activity Bed Rest (08/20/17 08:46) Elevate Head Of Bed (08/20/17 08:46) Neuro Checks . ORDERED (08/20/17 08:46) Sodium Chloride 0.9% Flush (Ns Flush) (08/20/17 09:00) Pantoprazole Inj (Protonix Inj) (08/20/17 09:00) Albuterol-Ipratropium Neb (Duoneb Neb) (08/20/17 10:00) Consult Cardiology (08/20/17 ) Consult Nephrology (08/20/17 ) Scoring Machine Operator / Telemetry VASILE.Q8H (08/20/17 08:46) Scd Bilateral/Knee High VASILE.BID (08/20/17 08:46) ^ Initiate Protocol (08/20/17 08:46) Instruction (08/20/17 08:46) Nursing Information (Misc Nursing Inform (08/20/17 09:00) Chlorhexidine 2% Cloth (Chlorhexidine 2% (08/21/17 04:00) Chlorhexidine 2% Cloth (Chlorhexidine 2% (08/20/17 09:00) Inpatient Certification (08/20/17 ) Admit Order (Ed Use Only) (08/20/17 08:47) CKMB (08/20/17 07:40) CKMB% (08/20/17 07:40) Labs Laboratory Tests Test 08/20/17 07:40 08/20/17 08:20 White Blood Count 23.7 TH/MM3 Red Blood Count 3.06 MIL/MM3 Hemoglobin 10.8 GM/DL Hematocrit 36.1 % Mean Corpuscular Volume 118.1 FL Mean Corpuscular Hemoglobin 35.2 PG Mean Corpuscular Hemoglobin Concent 29.8 % Red Cell Distribution Width 16.5 % Platelet Count 159 TH/MM3 Mean Platelet Volume 9.6 FL Neutrophils (%) (Auto) 82.2 % Lymphocytes (%) (Auto) 8.3 % Monocytes (%) (Auto) 9.2 % Eosinophils (%) (Auto) 0.1 % Basophils (%) (Auto) 0.2 % Neutrophils # (Auto) 19.5 TH/MM3 Lymphocytes # (Auto) 2.0 TH/MM3 Monocytes # (Auto) 2.2 TH/MM3 Eosinophils # (Auto) 0.0 TH/MM3 Basophils # (Auto) 0.1 TH/MM3 CBC Comment AUTO DIFF Differential Total Cells Counted 100 Neutrophils % (Manual) 79 % Band Neutrophils % 4 % Lymphocytes % 6 % Monocytes % 7 % Neutrophils # (Manual) 20.6 TH/MM3 Myelocytes 4 % Differential Comment FINAL DIFF MANUAL Platelet Estimate NORMAL Platelet Morphology Comment NORMAL Prothrombin Time 14.1 SEC Prothromb Time International Ratio 1.4 RATIO Activated Partial Thromboplast Time 27.1 SEC Blood Gas Puncture Site RT RADIAL Blood Gas Patient Temperature 98.6 Blood Gas HCO3 11 mmol/L Blood Gas Base Excess -17.6 mmol/L Blood Gas Oxygen Saturation 96 % Arterial Blood pH 7.05 Arterial Blood Partial Pressure CO2 40 mmHg Arterial Blood Partial Pressure O2 247 mmHG Arterial Blood Oxygen Content 15.2 Vol % Arterial Blood Carboxyhemoglobin 0.4 % Arterial Blood Methemoglobin 1.3 % Blood Gas Hemoglobin 10.8 G/DL Oxygen Delivery Device VENTILATOR Blood Gas Ventilator Setting PRVCAC/R16/VT450/P5 Blood Gas Inspired Oxygen 100 % Blood Urea Nitrogen 48 MG/DL Creatinine 8.04 MG/DL Random Glucose 220 MG/DL Total Protein 6.1 GM/DL Albumin 2.5 GM/DL Calcium Level 12.9 MG/DL Phosphorus Level 10.7 MG/DL Magnesium Level 3.5 MG/DL Alkaline Phosphatase 147 U/L Aspartate Amino Transf (AST/SGOT) 877 U/L Alanine Aminotransferase (ALT/SGPT) 528 U/L Total Bilirubin 0.6 MG/DL Sodium Level 143 MEQ/L Potassium Level 6.5 MEQ/L Chloride Level 99 MEQ/L Carbon Dioxide Level 14.1 MEQ/L Anion Gap 30 MEQ/L Estimat Glomerular Filtration Rate 6 ML/MIN Protein Corrected Calcium MG/DL Total Creatine Kinase 173 U/L Creatine Kinase MB 3.1 NG/ML Troponin I 4.17 NG/ML Lactic Acid Level 15.9 mmol/L MDM Medical Decision Making Medical Screen Exam Complete: Yes Emergency Medical Condition: Yes Differential Diagnosis V. fib cardiac arrest versus metabolic derangement versus respiratory failure Narrative Course This is a 47-year-old female with a history of HIV, end-stage renal disease, COPD, who presents here after going into a witnessed V. fib arrest. The patient was resuscitated by EMS prior to arrival. She was given 3 rounds of epi and 1 g of calcium chloride. Return of spontaneous circulation was obtained. The patient arrived she was intubated. She had a GCS of 3. Patient was given 2 further doses of calcium chloride. Her pH was 7.0 on her blood gas. CT brain showed no evidence of acute process. Patient was discussed with Dr. Goode, valve assembler, who agreed to admit the patient to his service. I discussed with family that we had successfully resuscitated however she was still in critical condition. Concern was that the patient may have had hyperkalemia. Potassium does come back at 6.5. She will be admitted to the [facility] [place]. Critical Care Narrative Aggregate critical care time was 60 minutes. Time to perform other separately billable procedures was not included in the critical care time. My time did not include minutes spent treating any other patients simultaneously or on activities that did not directly contribute to the patient's treatment. The services I provided to this patient were to treat and/or prevent clinically significant deterioration that could result in: I provided critical care services requiring my management, as noted below: Chart data review, documentation time, medication orders and management, vital sign assessments/reviewing monitor data, ordering and reviewing lab tests, ordering and interpreting/reviewing x-rays and diagnostic studies, care of the patient and discussion of the patient with the admitting physicians. Diagnosis Primary Impression: V. fib cardiac arrest with return of spontaneous circulation Additional Impressions: ESRD (end stage renal disease) on dialysis Anemia in CKD (chronic kidney disease) Hyperkalemia Acidosis, metabolic Admitting Information Admitting Physician Requests: Admit See Rossi MD Aug 20, 2017 07:51
[2017-08-20] MEDS ORDERED: MIDAZOLAM 50 MG/NS 50 ML DRIP Premix IV PRN (08:00)
[2017-08-20 08:07] LABS: AUTOMATED NEUTROPHIL # 19.5 TH/MM3 (1.8-7.7); BASOPHIL # 0.1 TH/MM3 (0-0.2); BASOPHIL % 0.2 % (0.0-2.0); EOSINOPHIL % 0.1 % (0.0-4.0); HEMATOCRIT 36.1 % (35.0-46.0); HEMOGLOBIN 10.8 GM/DL (11.6-15.3); LYMPH % 8.3 % (9.0-44.0); MEAN CELL VOLUME 118.1 FL (80.0-100.0); MEAN CORPUSCULAR HEMOGLOBIN 35.2 PG (27.0-34.0); MEAN PLATELET VOLUME 9.6 FL (7.0-11.0); MONO % 9.2 % (0.0-8.0); MONOCYTE # 2.2 TH/MM3 (0-0.9); NEUT % 82.2 % (16.0-70.0); PLATELET COUNT 159 TH/MM3 (150-450); RED BLOOD COUNT 3.06 MIL/MM3 (4.00-5.30); RED CELL DISTRIBUTION WIDTH 16.5 % (11.6-17.2); WHITE BLOOD COUNT 23.7 TH/MM3 (4.0-11.0)
[2017-08-20 08:12] LABS: MEAN CORPUSCULAR HGB CONC 29.8 % (32.0-36.0)
[2017-08-20] MEDS ORDERED: SODIUM BICARBONATE 8.4% INJ 50 MEQ/50 ML SYR IV PUSH ONE ×2 (08:15)
[2017-08-20 08:18] LABS: INTERNATIONAL NORMALIZED RATIO 1.4 RATIO; PROTHROMBIN TIME - PATIENT 14.1 SEC (9.8-11.6)
[2017-08-20 08:53] LABS: ALBUMIN 2.5 GM/DL (3.4-5.0); ALKALINE PHOSPHATASE 147 U/L (45-117); ALT (GPT) 528 U/L (10-53); AST (GOT) 877 U/L (15-37); BICARBONATE 14.1 MEQ/L (21.0-32.0); BLOOD UREA NITROGEN 48 MG/DL (7-18); CHLORIDE 99 MEQ/L (98-107); CREATININE 8.04 MG/DL (0.50-1.00); GLOMERULAR FILTRATION RATE 6 ML/MIN (>89); GLUCOSE,RANDOM 220 MG/DL (74-106); MAGNESIUM 3.5 MG/DL (1.5-2.5); PHOSPHORUS 10.7 MG/DL (2.5-4.9); SODIUM (NA) 143 MEQ/L (136-145); TOTAL BILIRUBIN ADULT 0.6 MG/DL (0.2-1.0); TOTAL PROTEIN 6.1 GM/DL (6.4-8.2)
[2017-08-20 08:55] LABS: BANDS 4 % (0-6); LYMPHOCYTES 6 % (9-44); MONOCYTES 7 % (0-8); MYELOCYTES 4 % (0-0); NEUTROPHIL # MANUAL DIFF 20.6 TH/MM3 (1.8-7.7); POLYS (SEG NEUTROPHILS) 79 % (16-70)
[2017-08-20 08:56] LABS: CALCIUM 12.9 MG/DL (8.5-10.1); TROPONIN I 4.17 NG/ML (0.02-0.05)
[2017-08-20] MEDS ORDERED: NURSING INFORMATION XX SCH (09:00)
[2017-08-20] MEDS ORDERED: CHLORHEXIDINE GLUCONATE 2 % 1 PACK (2 CLOTHS) TOP PRN (09:00)
[2017-08-20] MEDS ORDERED: SODIUM CHLORIDE 0.9% FLUSH 10 ML FLUSH IV FLUSH SCH (09:00)
[2017-08-20] MEDS ORDERED: PANTOPRAZOLE SODIUM 40 MG VIAL IV PUSH SCH (09:00)
--- NOTE | 2017-08-20 09:07 | RADRPT ---
EXAM DATE: 08/20/2017 8:16 AM EDT AGE/SEX: 47 years / Female INDICATIONS: Altered mental status. CLINICAL DATA: This is the patient's initial encounter. Patient reports that signs and symptoms have been present for 1 day and indicates a pain score of Nonresponsive. MEDICAL/SURGICAL HISTORY: Stroke. Renal disease, end stage. HIV. Cardiovascular disease, hyperte nsion, COPD, diabetes. Colostomy. RADIATION DOSE: 35.25 CTDI (mGy) COMPARISON: [facility] [place], CT BRAIN W/O CONTRAST, 11/26/2015. . TECHNIQUE: CT of the head without contrast. Using automated exposure control and adjustment of the mA and/or kV according to patient size, radiation dose was kept as low as reasonably achievable to ob tain optimal diagnostic quality images. FINDINGS: There is no evidence for intracranial hemorrhage, mass effect, mass lesions, edema, or extra-axial fl uid collections. The visualized bony structures appear intact. The ventricles are normal size for t he patient's age. There are no signs of acute infarction for technique. Chronic atrophic changes of posterior fossa have not changed. CONCLUSION: Unremarkable study. Electronically signed by: Laquita Nguyen MD 08/20/2017 9:06 AM EDT
[2017-08-20 09:25] LABS: LACTIC ACID SEPSIS PROTOCOL 15.9 mmol/L (0.4-2.0)
[2017-08-20] MEDS ORDERED: PIPERACIL-TAZO 3.375 GM PREMIX 50 ML IV SCH (09:45)
[2017-08-20] MEDS ORDERED: INSULIN HUMAN REGULAR 1,000 UNITS/10 ML VIAL IV PUSH ONE (09:45)
[2017-08-20] MEDS ORDERED: GLUCAGON 1 MG/ML VIAL OTHER PRN (09:45)
[2017-08-20] MEDS ORDERED: DEXTROSE 50% IN WATER 50 ML SYRINGE IV PUSH ONE (09:45)
[2017-08-20] MEDS ORDERED: Vancomycin Consult Pharmacy 1 EA OTHER SCH (09:45)
[2017-08-20] MEDS ORDERED: ASPIRIN 325 MG TAB PO ONE (09:45)
[2017-08-20] MEDS ORDERED: DEXTROSE 50% IN WATER 50 ML VIAL(D50) IV PUSH PRN (09:45)
[2017-08-20] MEDS ORDERED: VANCOMYCIN INJ 1,000 MG in SODIUM CHLOR 0.9% 250 ML INJ 250 ML IV ONE (10:00)
[2017-08-20] MEDS ORDERED: RESP: ALBUTEROL 2.5 MG/IPRATROPIUM 0.5 MG NEB (SCH) INH (10:00)
[2017-08-20] MEDS ORDERED: CALCIUM GLUCONATE INJ 1 GM in SODIUM CHLORIDE 0.9% INJ 100 ML IV ONE (10:00)
[2017-08-20] MEDS ORDERED: SODIUM BICARBONATE 8.4% INJ 150 MEQ in WATER STERILE FOR INJ 850 ML IV SCH (10:00)
[2017-08-20] MEDS ORDERED: INSULIN NovoLIN REGULAR SUPPLEMENTAL SCALE SQ SCH (10:00)
[2017-08-20] MEDS ORDERED: SODIUM CHLOR 0.9% 1000 ML INJ 1,000 ML OTHER PRN ×2 (10:11)
[2017-08-20] MEDS ORDERED: SODIUM CHLOR 0.9% 1000 ML INJ 1,000 ML IV PRN (10:11)
[2017-08-20] MEDS ORDERED: ONDANSETRON HCL 4 MG/2 ML VIAL IV PUSH PRN (10:15)
[2017-08-20] MEDS ORDERED: GELATIN 12 MM/7 MM FOAM TOP PRN (10:15)
[2017-08-20] MEDS ORDERED: SODIUM CHLORIDE 0.9% FLUSH 10 ML FLUSH IV FLUSH PRN (10:15)
[2017-08-20] MEDS ORDERED: HEPARIN SODIUM - IV 10,000 UNITS/10 ML VIAL IV FLUSH PRN (10:15)
[2017-08-20] MEDS ORDERED: MANNITOL 12.5 GM/50 ML VIAL IV PRN (10:15)
[2017-08-20] MEDS ORDERED: ALBUMIN 25% INJ 100 ML IV PRN (10:15)
[2017-08-20] MEDS ORDERED: cloNIDine HCL 0.1 MG TAB PO PRN (10:15)
[2017-08-20] MEDS ORDERED: NITROGLYCERIN 0.4 MG SL 25 TABS/BTL SL PRN (10:15)
[2017-08-20] MEDS ORDERED: diphenhydrAMINE HCL 25 MG CAP PO PRN (10:15)
[2017-08-20] MEDS ORDERED: ACETAMINOPHEN 325 MG TAB PO PRN (10:15)
[2017-08-20] MEDS ORDERED: PROPOFOL 1000 MG/100 ML INJ 100 ML IV PRN (10:30)
[2017-08-20] MEDS ORDERED: fentaNYL DRIP 250 ML IV PRN (10:30)
[2017-08-20] MEDS ORDERED: CISATRACURIUM INJ 100 MG in SODIUM CHLOR 0.9% 250 ML INJ 250 ML IV PRN (10:30)
--- NOTE | 2017-08-20 10:34 | PD.CONS ---
HPI Service Nephrology Consult Requested By Dr. Wall Reason for Consult ESRD status post CODE BLUE Primary Care Physician Unknown History of Present Illness Patient is a 47 year old -Russian female with end-stage renal disease on hemodialysis, HIV disease, diabetes, hypertension, congestive heart failure, coronary artery disease, she was having severe shortness of breath and quoted, EMT resuscitated and brought her to the hospital he has ventricular fibrillation , asystole on ACLS protocol initiated patient is now intubated on ventilator, she was due for dialysis today, her potassium is 6.5. Patient follows with Dr. Nolan at [facility]. Review of Systems ROS Limitations: Clinical Condition Past Family Social History Allergies: Coded Allergies: codeine (Unverified Allergy, Severe, Rash, 01/08/17) *MDRO Multi-Drug Resistant Organism (Verified Adverse Reaction, Unknown, 01/08/17) 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 - 11/27/15 Past Medical History DM HTN ESRD AVF HIV Disease CHF CAD Anemia Pneumonia CVA Past Surgical History AVF Left arm Coronary stent 2 Tubal ligation Reported Medications Reported Meds & Active Scripts Active Cefuroxime (Cefuroxime Axetil) 500 Mg Tab 500 Mg PO BID Zithromax (Azithromycin) 250 Mg Tab 250 Mg PO DAILY 4 Days Ventolin Hfa 18 GM Inh (Albuterol Sulfate) 90 Mcg/Act Aer 2 Puff INH Q4-6H PRN [POV / Scooter] Ea Reported Thera-Tabs (Multiple Vitamin) 1 Tab Tab 1 Tab PO DAILY Sensipar (Cinacalcet) 30 Mg Tab 30 Mg PO DAILY Prolia Inj (Denosumab) 60 Mg/Ml Inj 60 Mg SQ Q180D Lactulose Liq (Lactulose) 10 Gm/15 Ml Soln 30 Ml PO Q6H PRN Docusate Sodium 100 Mg Cap 100 Mg PO HS PRN Acidophilus Probiotic Ble (Probiotic Product) 175 Mg Cap 1 Cap PO DAILY Amitiza (Lubiprostone) 24 Mcg Cap 24 Mg PO DAILY Rosuvastatin (Rosuvastatin Calcium) 10 Mg Tab 10 Mg PO DIRECTED One tab at bedtime Thursday, Thursday, and Thursday Olanzapine 2.5 Mg Tab 2.5 Mg PO HS Stiolto Respimat Inh (Tiotropium-Olodaterol Inh) 2.5-2.5 Mcg/Act Aero 2 Puff INH DAILY Odefsey (Zaxvnrbmuftzb-Byvlxfqxltf-Pqucucwwr Alafenam) 200-200-25 Mg Tab 1 Tab PO DAILY Nephro-Juan Antonio (B-Complex W/ C & Folic Acid) 1 Tab 1 Tab PO DAILY Hydroxyzine HCl 25 Mg Tab 25 Mg PO HS Humalog Inj (Insulin Human Lispro) 1,000 Unit/10 Ml Vial SQ ACHS PER SLIDING SCALE Plavix (Clopidogrel Bisulfate) 75 Mg Tab 75 Mg PO DAILY Buspirone (Buspirone HCl) 5 Mg Tab 2.5 Mg PO HS Aspirin EC Low Dose (Aspirin) 81 Mg Tabec 81 Mg PO MOWEFR Take 1 tablet(81mg) at bedtime on Thursday,Thursday and Thursday Active Ordered Medications Current Medications Medications (Trade) Dose Ordered Sig/Sue Route Start Time Stop Time Status Last Admin Midazolam HCl 50 ml @ 2 mls/hr TITRATE PRN IV 08/20/17 08:00 08/20/17 07:57 (NS Flush) 2 ml BID IV FLUSH 08/20/17 09:00 (Protonix Inj) 40 mg DAILY IV PUSH 08/20/17 09:00 (Duoneb Neb) 1 ampule Q6HR NEB INH 08/20/17 10:00 ([facility] Nursing Information) 1 Q361D XX 08/20/17 09:00 (Chlorhexidine 2% Cloth) 3 pack Taper DAILY@04 TOP 08/21/17 04:00 08/17/18 03:59 (Chlorhexidine 2% Cloth) 3 pack UNSCH PRN TOP 08/20/17 09:00 Vancomycin HCl 1000 mg/Sodium Chloride 250 ml @ 250 mls/hr ONCE ONCE IV 08/20/17 10:00 08/20/17 10:59 Pharmacy Profile Note 0 ml @ 0 mls/hr UNSCH OTHER 08/20/17 09:45 UNV Piperacillin Sod/ Tazobactam Sod 50 ml @ 100 mls/hr Q8H IV 08/20/17 09:45 UNV (Heparin Inj) 5,000 units Q12HR SQ 08/20/17 21:00 UNV (D50w (Vial) Inj) 50 ml UNSCH PRN IV PUSH 08/20/17 09:45 UNV (Glucagon Inj) 1 mg UNSCH PRN OTHER 08/20/17 09:45 UNV (NovoLIN R SUPPLEMENTAL SCALE) 1 Q4H SQ 08/20/17 09:45 UNV Calcium Gluconate 1 gm/Sodium Chloride 110 ml @ 110 mls/hr ONCE ONCE IV 08/20/17 10:00 08/20/17 10:59 Sodium Bicarbonate 150 meq/Sterile Water 1,000 ml @ 125 mls/hr Q8H IV 08/20/17 10:00 Family History Noncontributory Social History In the past denies smoking or alcohol use Physical Exam Vital Signs Vital Signs Date Time Temp Pulse Resp B/P (MAP) Pulse Ox O2 Delivery O2 Flow Rate FiO2 08/20/17 09:30 100 08/20/17 09:24 124 16 189/84 (119) 96 50 08/20/17 09:05 125 18 189/84 (119) 98 Ventilator 08/20/17 08:25 129 24 164/80 (108) 95 Ventilator 50 08/20/17 08:12 126 18 141/68 (92) 98 Ventilator 50 08/20/17 08:02 50 08/20/17 08:00 100 100 08/20/17 07:56 128 18 131/70 (90) 98 Ventilator 100 08/20/17 07:46 97.4 128 21 117/63 (81) 98 Ventilator 100 08/20/17 07:44 127 22 99/55 (70) 97 Ventilator 100 08/20/17 07:44 100 Ventilator 100 08/20/17 07:39 121 17 97/53 (68) 100 Ventilator 100 08/20/17 07:37 120 18 100 Ventilator 100 08/20/17 07:30 100 08/20/17 07:12 100 100 Physical Exam GENERAL: Sick appearing intubated SKIN: Warm and dry. HEAD: Normocephalic. EYES: No scleral icterus. No injection or drainage. NECK: Supple, trachea midline. No JVD or lymphadenopathy. CARDIOVASCULAR: Tachycardia 2/6 systolic murmur. RESPIRATORY: Breath sounds equal bilaterally. No accessory muscle use. GASTROINTESTINAL: Abdomen soft, non-tender, nondistended. EXTREMITIES: No cyanosis, mild edema. AV fistula left arm NEUROLOGICAL: Intubated unresponsive Laboratory Laboratory Tests Test 08/20/17 07:40 08/20/17 08:20 White Blood Count 23.7 Red Blood Count 3.06 Hemoglobin 10.8 Hematocrit 36.1 Mean Corpuscular Volume 118.1 Mean Corpuscular Hemoglobin 35.2 Mean Corpuscular Hemoglobin Concent 29.8 Red Cell Distribution Width 16.5 Platelet Count 159 Mean Platelet Volume 9.6 Neutrophils (%) (Auto) 82.2 Lymphocytes (%) (Auto) 8.3 Monocytes (%) (Auto) 9.2 Eosinophils (%) (Auto) 0.1 Basophils (%) (Auto) 0.2 Neutrophils # (Auto) 19.5 Lymphocytes # (Auto) 2.0 Monocytes # (Auto) 2.2 Eosinophils # (Auto) 0.0 Basophils # (Auto) 0.1 CBC Comment AUTO DIFF Differential Total Cells Counted 100 Neutrophils % (Manual) 79 Band Neutrophils % 4 Lymphocytes % 6 Monocytes % 7 Neutrophils # (Manual) 20.6 Myelocytes 4 Differential Comment FINAL DIFF MANUAL Platelet Estimate NORMAL Platelet Morphology Comment NORMAL Prothrombin Time 14.1 Prothromb Time International Ratio 1.4 Activated Partial Thromboplast Time 27.1 Blood Gas Puncture Site RT RADIAL Blood Gas Patient Temperature 98.6 Blood Gas HCO3 11 Blood Gas Base Excess -17.6 Blood Gas Oxygen Saturation 96 Arterial Blood pH 7.05 Arterial Blood Partial Pressure CO2 40 Arterial Blood Partial Pressure O2 247 Arterial Blood Oxygen Content 15.2 Arterial Blood Carboxyhemoglobin 0.4 Arterial Blood Methemoglobin 1.3 Blood Gas Hemoglobin 10.8 Oxygen Delivery Device VENTILATOR Blood Gas Ventilator Setting PRVCAC/R16/VT450/P5 Blood Gas Inspired Oxygen 100 Blood Urea Nitrogen 48 Creatinine 8.04 Random Glucose 220 Total Protein 6.1 Albumin 2.5 Calcium Level 12.9 Phosphorus Level 10.7 Magnesium Level 3.5 Alkaline Phosphatase 147 Aspartate Amino Transf (AST/SGOT) 877 Alanine Aminotransferase (ALT/SGPT) 528 Total Bilirubin 0.6 Sodium Level 143 Potassium Level 6.5 Chloride Level 99 Carbon Dioxide Level 14.1 Anion Gap 30 Estimat Glomerular Filtration Rate 6 Protein Corrected Calcium Total Creatine Kinase 173 Creatine Kinase MB 3.1 Troponin I 4.17 Lactic Acid Level 15.9 Result Diagram: 08/20/1773908/20/17739 Imaging Last Impressions Head CT 08/20/17 0730 Signed Impressions: CONCLUSION: Unremarkable study. Chest X-Ray 08/20/17 0759 Signed Impressions: CONCLUSION: 1. Endotracheal tube distal tip measures 1.7 cm from the glenis. 2. Improved aeration at the lung bases with continued mild bibasilar opacity r epresenting either atelectasis or mild consolidation. Assessment and Plan Problem List: (1) ESRD (end stage renal disease) on dialysis ICD Codes: N18.6 - End stage renal failure on dialysis; Z99.2 - Dependence on renal dialysis Status: Chronic Plan: Patient was due for hemodialysis today and I have called hemodialysis stat continue to treat hyperkalemia Discussed with Dr. Wall Prognosis is guarded to poor (2) Hyperkalemia ICD Codes: E87.5 - Hyperkalemia Plan: Calcium D50 insulin and dialysis (3) Acidosis, metabolic ICD Codes: E87.2 - Acidosis Plan: Patient needs hemodialysis to correct the acidosis (4) Cardiac arrest ICD Codes: I46.9 - Cardiac arrest, cause unspecified Plan: Underlying coronary artery disease, prognosis is guarded to poor (5) Respiratory arrest ICD Codes: R09.2 - Respiratory arrest Status: Acute Plan: Intubated Eduardo Pulliam MD Aug 20, 2017 10:34
[2017-08-20] MEDS ORDERED: ONDANSETRON ODT 4 MG TAB PO PRN (10:45)
--- NOTE | 2017-08-20 10:47 | PD.PROCEDR ---
Central Line Procedure REASON FOR PROCEDURE Central venous access PROCEDURE PERFORMED Central line placement: Quattro cooling catheter CONSENT Procedure was performed emergently to place patient on hypothermia protocol. . ANESTHESIA Local injection of 1% Lidocaine DESCRIPTION OF THE PROCEDURE The patient was placed in supine, mild Trendelenburg position. The area was exposed and cleansed with ChloraPrep, times two. Large sterile drape was used to cover the patient, with the site exposed, under sterile conditions including cap, face mask, sterile gown, and sterile gloves. On single attempt, the introducer needle was inserted with negative pressure in syringe and venous flash was obtained. The guide wire was then advanced without any restriction and the needle was removed. The dilator was used without any complications. Using Seldinger technique the catheter was advanced over the guide wire to a depth of 25 centimeters. The guide wire was removed. All ports were aspirated with dark venous blood return and flushed easily with sterile saline. All ports were capped. Antibiotic disc was placed around central line at puncture site. The central line was secured to the skin with two interrupted 2.0 silk sutures. The area was bandaged with sterile see-through central line bandage. COMPLICATIONS: No apparent complications ESTIMATED BLOOD LOSS: Less than 1 cc. Stephani Wall MD Aug 20, 2017 10:47
[2017-08-20] MEDS ORDERED: EPOETIN ALFA 4,000 UNITS/ML VIAL IV PUSH PRN (11:00)
[2017-08-20] MEDS ORDERED: PIPERACIL-TAZO 2.25 GM PREMIX 50 ML IV SCH (11:00)
--- NOTE | 2017-08-20 11:29 | MH ---
cc: Stephani Wall MD DATE OF ADMISSION: 08/20/2017 HISTORY OF PRESENT ILLNESS: The patient is a 47-year-old with past medical history of end-stage renal disease, on hemodialysis, HIV, who presented to [facility] ED via EMS after a witnessed cardiac arrest. EVAC was called for shortness of breath and when paramedics arrived, they found her in a cardiac arrest. CPR was initiated immediately and patient went into what was reported V-fib arrest, which, for shortly, fell into asystole. She was given 3 rounds of epinephrine and 1 round of calcium chloride in the field. She had successful return of spontaneous circulation. On arrival to the ER, she was tachycardic. Initially, she was hypotensive with blood pressure 99/55; however, she became hypertensive with systolic blood pressure 140s to 160s. Stat CT scan of the brain in the ED was unremarkable. Her laboratory data is significant for severe lactic acidosis with lactic acid level of 15.9, hyperkalemia with potassium level of 6.5 and troponin of 4.17. Also, she had elevated liver enzymes with AST 877, ALT 528. Her ABG post-intubation showed metabolic acidosis with a pH of 7.05, CO2 of 40, PaO2 of 247, bicarbonate 11, saturation of 96%. In the ER, she received 3 amps of sodium bicarbonate. A chest x-ray post-intubation showed ET tube 1.7 cm above the glenis, mild bibasilar opacity representing either atelectasis or mild consolidation. Also, she was found to have leukocytosis with a WBC of 23.7. PAST MEDICAL HISTORY: Significant for end-stage renal disease, HIV, hyperlipidemia, history of coronary artery disease, history of osteoporosis. PAST SURGICAL HISTORY: Arteriovenous fistula, left upper extremity, previous coronary stent placements. ALLERGIES: CODEINE. REPORTED MEDICATIONS: Include multivitamins, lactulose, rosuvastatin, calcium, Nephro-Juan Antonio, Humalog insulin, Plavix, aspirin. FAMILY HISTORY: Noncontributory to present illness. REVIEW OF SYSTEMS: As per HPI; rest of the review of systems unobtainable. PHYSICAL EXAMINATION: GENERAL: A 47-year-old female status post cardiopulmonary arrest VITAL SIGNS: Temperature 97.4, respiratory rate 16, blood pressure 189/84, pulse 120s, saturation 96%. Vent setting: PRVC rate of 16, tidal volume 450, PEEP of 5, I-time 1, FIO2 of 50%. HEENT: Atraumatic, normocephalic. Pupils equal, round, reactive to light and accommodation. Extraocular muscles intact. Conjunctivae pink. Nonicteric sclerae. Oral mucosa within normal. NECK: Supple. No JVD, adenopathy or thyromegaly. Trachea midline. CARDIOVASCULAR: Tachycardic. Normal S1, S2. No murmurs, rubs or gallops noted. PULMONARY: Bilateral equal air entry. No rales or wheezing. ABDOMEN: Soft, nontender. No distention. Positive bowel sounds. EXTREMITIES: No cyanosis, clubbing, edema. NEUROLOGIC: Intubated, unresponsive. LABORATORY DATA: Sodium 143, potassium 6.5, chloride 99, CO2 of 14, anion gap 30, BUN 48, creatinine 8, glucose 220, lactic acid 15.9, calcium 12.9, AST 877, ALT 528, alkaline phosphatase 147. Troponin 4.17. WBC 23.7, hemoglobin 10.8, hematocrit 36, platelet count of 159. INR 1.4, PT at 14.1, PTT 27.1. CT brain unremarkable. Chest x-ray: ET tube above the glenis, mild bibasilar opacity, either atelectasis or mild consolidation. IMPRESSION: 1. Status post cardiopulmonary arrest. 2. Probable anoxic brain injury. 3. End-stage renal disease. 4. Hyperkalemia and hypercalcemia. 5. Lactic acidemia. 6. Elevated troponin. 7. Elevated liver enzymes. 8. Leukocytosis. 9. Anemia. 10. History of diabetes mellitus. RECOMMENDATIONS: 1. The patient is a candidate for Code Cool. We will proceed with hypothermia protocol. We will place on Diprivan, fentanyl infusion for sedation. In addition, we will start neuromuscular blockade during cooling phase. 2. CT scan of the brain in the ED negative for acute intracranial process. 3. Continue with vent support and maintain sats above 92%. 4. Bronchodilators in the form of DuoNeb q. 6. We will initiate ICU vent bundle. Decrease FIO2 to 40%. 5. Monitor heart rate and blood pressure closely and maintain MAP greater than 65 mmHg. Continue with aspirin and Plavix. We will obtain 2D echo to evaluate LV function and consult cardiology service. Monitor cardiac enzymes with troponins. 6. Monitor renal function, I's and O's and avoid nephrotoxins. We will treat hyperkalemia with IV insulin D50, calcium. In addition, we will place on a bicarbonate drip. Case discussed with Dr. Pulliam from nephrology service and plan to proceed with emergent hemodialysis. 7. Serial lactic acid monitoring. 8. Keep n.p.o. for now and place on Protonix 40 mg daily for GI prophylaxis. 9. We will place on broad spectrum antibiotics in the form of vancomycin and Zosyn and monitor for signs of infections, which include fever and WBC. We will obtain blood cultures x 2 sets. In addition, we will check sputum culture with Gram stain and urinalysis with culture if indicated. 10. Monitor CBC. 11. Place on sliding scale insulin with Accu-Cheks q. 4 hours for glycemic control. 12. Monitor LFTs and will check ultrasound of the abdomen and check hepatitis profile. 13. GI prophylaxis with Protonix 40 mg daily and DVT prophylaxis with SCD and heparin subcutaneous. 14. The patient is critically ill, status post cardiopulmonary arrest with probable anoxic brain injury, renal failure, on hemodialysis, severe lactic acidemia. PROGNOSIS: Overall guarded. A cooling catheter was placed in the right femoral area. CRITICAL CARE TIME: 60 minutes, excluding procedures. MD WANG Dan/CALEB , 10:39 AM , 11:27 AM
[2017-08-20] MEDS ORDERED: NOREPINEPHRINE-DEXTROSE DRIP 250 ML IV ONE (11:36)
--- NOTE | 2017-08-20 19:57 | EKG ---
Date Performed: 08/20/2017 Time Performed: 06:31:53 PTAGE: 47 years EKG: SINUS TACHYCARDIA WITH SHORT RI INTERVAL POSSIBLE RIGHT ATRIAL ENLARGEMENT RIGHT BUNDLE BRA NCH BLOCK ST DEVIATION AND MODERATE T-WAVE ABNORMALITY, CONSIDER INFERIOR ISCHEMIA ABNORMAL ECG Since PREVIOUS TRACING , right bundle branch block is new. Patient has ST segment elevation in lead V1 and AVR that are new and occuring in conjuction with significant increase in lateral ST segme nt depression. Electrocardiogram is suggestive of significant myocardial ischemia or infarction. Clin ical correlation is recommended as the ischemic changes have certainly increased since the prior trac ing and the right bundle branch block is new. PREVIOUS TRACIN08/18/2017 04.16 DOCTOR: Tamanna Riggs Interpretating Date/Time 08/20/2017 19:56:36
[2017-08-20] MEDS ORDERED: HEPARIN SODIUM - SQ 10,000 UNITS/ML VIAL SQ SCH (21:00)
[2017-08-21] MEDS ORDERED: CHLORHEXIDINE GLUCONATE 2 % 1 PACK (2 CLOTHS) TOP SCH (04:00)
== END 2017-08-20 11:50 | disposition expired | DRG 640 ==
LOC: NEPE 07:17 → NEDA 08:49 → HIME 09:40
PROVIDERS: ADMIT Internal Medicine Critical Care Medicine; ATTEND Internal Medicine Critical Care Medicine
PROC: 5A1935Z Respiratory Ventilation, Less than 24 Consecutive Hours (ICD-10-PCS; principal; 2017-08-20)
PROC: 05HP33Z Insertion of Infusion Device into Right External Jugular Vein, Percutaneous Approach (ICD-10-PCS; 2017-08-20)
PROC: 6A4Z0ZZ Hypothermia, Single (ICD-10-PCS; 2017-08-20)
DX: E87.5 Hyperkalemia (principal); N18.6 End stage renal disease; B20 Human immunodeficiency virus [HIV] disease; I46.9 Cardiac arrest, cause unspecified; I12.0 Hypertensive chronic kidney disease with stage 5 chronic kidney disease or end stage renal disease; E87.2 Acidosis; E11.22 Type 2 diabetes mellitus with diabetic chronic kidney disease; Z79.4 Long term (current) use of insulin; Z99.2 Dependence on renal dialysis; J44.9 Chronic obstructive pulmonary disease, unspecified; R40.2430 Glasgow coma scale score 3-8, unspecified time; D63.1 Anemia in chronic kidney disease; I25.10 Atherosclerotic heart disease of native coronary artery without angina pectoris; Z95.5 Presence of coronary angioplasty implant and graft; M81.0 Age-related osteoporosis without current pathological fracture; Z79.82 Long term (current) use of aspirin
CPT/HCPCS: 36556; 36600; 70450; 71045; 80053; 82550; 82552; 82805; 83605; 83735; 84100; 84484; 85007; 85027; 85610; 85730; 90935; 92950; 93005; 94002; 94664; C9113; J0610; J1815; J2250; J3010; J3370; J7050